=== PATIENT | female | born 1970 | race Caucasian/White ===

== ENCOUNTER → 2020-04-04 10:28 | Outpatient (BNVA) | payer MEDICARE, MEDICAID, SELFPAY | PROVIDERS: PCP Family Medicine; Visit Provider Physician Assistant | DX: K90.49 Malabsorption due to intolerance, not elsewhere classified (principal); K29.70 Gastritis, unspecified, without bleeding; Z98.84 Bariatric surgery status; Z87.19 Personal history of other diseases of the digestive system | CPT/HCPCS: 99212 ==

== ENCOUNTER → 2020-04-05 08:21 | Outpatient (BNVA) | payer MEDICARE, MEDICAID, SELFPAY | PROVIDERS: PCP Family Medicine; Visit Provider Dietitian, Registered | DX: Z76.89 Persons encountering health services in other specified circumstances (principal) ==

== ENCOUNTER → 2020-04-06 08:16 | Outpatient (BNVA) | payer MEDICARE, MEDICAID, SELFPAY | PROVIDERS: PCP Family Medicine; Visit Provider Dietitian, Registered | DX: Z76.89 Persons encountering health services in other specified circumstances (principal) ==

== ENCOUNTER → 2020-04-22 09:03 | Outpatient (BNVA) | payer MEDICARE, MEDICAID, SELFPAY | PROVIDERS: PCP Family Medicine; Referring Provider Family Medicine; Visit Provider Physician Assistant | DX: Z76.89 Persons encountering health services in other specified circumstances (principal) ==

== ENCOUNTER → 2020-07-05 08:14 | Outpatient (BNVA) | payer MEDICARE, MEDICAID, SELFPAY | PROVIDERS: PCP Family Medicine; Visit Provider Dietitian, Registered ==

== ENCOUNTER 2021-03-17 13:39 | Outpatient (REF) | payer MEDICARE, MEDICAID, SELFPAY ==
[2021-03-17 14:50] LABS: MANUAL DIFF FLAG NO
[2021-03-17 14:57] LABS: Basophils Percent Auto 0.3 % (0-2); Eosinophils Absolute Auto 0.2 X10*3/uL (0.0-0.4); Eosinophils Percent Auto 2.2 % (0-4); Hematocrit 40.5 % (37-47); Hemoglobin 13.1 g/dl (12.0-16.0); Imm Gran Abs Auto 0.02 X10*3/uL (0.00-0.03); Imm Gran Pct Auto 0.3 % (0.0-0.4); Lymphocytes Percent Auto 27.3 % (20-40); Mean Corpuscular HGB Conc 32.3 g/dl (31.0-35.0); Mean Corpuscular Hemoglobin 30.2 pg (27.0-33.0); Mean Corpuscular Volume 93.3 fL (80-98); Mean Platelet Volume 11.2 fL (9.4-12.3); Monocytes Absolute Auto 0.4 X10*3/uL (0.1-1.2); Monocytes Percent Auto 4.8 % (2-11); Neutrophils Absolute Auto 4.8 X10*3/uL (2.0-8.3); Neutrophils Percent Auto 65.1 % (45-73); Platelet Count 186 X10*3/uL (160-400); Red Blood Count 4.34 X10*6/uL (4.20-5.50); Red Cell Distribution Width 13.8 % (11.0-16.0); White Blood Count 7.4 X10*3/uL (4.8-10.8)
[2021-03-17 15:18] LABS: Estimated Average Glucose 97 mg/dL
[2021-03-17 15:22] LABS: Alanine Aminotransferase 12 U/L (0-31); Alkaline Phosphatase 91 U/L (39-117); Anion Gap 11 (12-20); Aspartate Amino Transferase 15 U/L (5-31); Bilirubin Total 0.6 mg/dL (0.0-1.0); Blood Urea Nitrogen 11 mg/dL (9-16); C Reactive Protein 0.23 mg/dL (< or = 0.50); Calcium 9.6 mg/dL (8.4-10.2); Carbon Dioxide 31 mmol/L (22-29); Chloride 105 mmol/L (96-108); Cholesterol 174 mg/dL; Estimated Glomerular Filt Rate > 60; Glucose Random 81 mg/dL (60-115); HDL Cholesterol 59 mg/dL; Iron 54 mcg/dL (30-160); LDL Cholesterol Calculated 101 mg/dl; Percent Iron Saturation 16 % (15-50); Sodium 143 mmol/L (135-145); Total Iron Binding Capacity 343 mcg/dL (228-428); Total Protein 6.8 g/dL (6.5-8.0); Triglycerides 70 mg/dL; Unsaturated Iron Binding 289 ug/dL
[2021-03-17 15:44] LABS: Vitamin D 25-OH Total 22.7 ng/mL (>30)
[2021-03-17 15:51] LABS: Folate 9.6 ng/mL (> or = 4.0); Vitamin B12 309 pg/mL (200-900)
[2021-03-17 16:15] LABS: Ferritin 35 ng/mL (10-250)
[2021-03-20 14:31] LABS: Calcium (PTHI) 9.9 mg/dL (8.6-10.4); PTHI 48 pg/mL (14-64)
[2021-03-22 16:06] LABS: Zinc 59 mcg/dL (60-130)
[2021-03-22 18:42] LABS: Vitamin A 41 mcg/dL (38-98)
[2021-03-23 11:22] LABS: Vitamin B1 15 nmol/L (8-30)
== END 2021-03-17 13:40 | disposition home or self-care (01) ==
LOC: HO.LAB 13:39
PROVIDERS: PCP Family Medicine; Visit Provider Physician Assistant Surgical
DX: E66.9 Obesity, unspecified (principal); Z68.33 Body mass index [BMI] 33.0-33.9, adult; Z90.3 Acquired absence of stomach [part of]
CPT/HCPCS: 36415; 80053; 80061; 82306; 82607; 82728; 82746; 83036; 83540; 83970; 84425; 84443; 84590; 84630; 85025; 86140; 99212

== ENCOUNTER → 2021-06-06 08:04 | Outpatient (BNVA) | payer MEDICARE, MEDICAID, SELFPAY | PROVIDERS: PCP Family Medicine; Visit Provider Physician Assistant Surgical | DX: E66.9 Obesity, unspecified (principal); Z90.3 Acquired absence of stomach [part of] ==

== ENCOUNTER → 2022-02-28 12:11 | Outpatient (BNVA) | payer OTHER, SELFPAY | PROVIDERS: PCP Family Medicine; Referring Provider Physician Assistant Surgical; Visit Provider Physician Assistant Surgical | DX: E66.9 Obesity, unspecified (principal); Z90.3 Acquired absence of stomach [part of]; Z98.890 Other specified postprocedural states; Z87.19 Personal history of other diseases of the digestive system | CPT/HCPCS: 99212 ==

== ENCOUNTER 2022-03-16 14:32 | Outpatient (REF) | payer OTHER, SELFPAY ==
[2022-03-16 14:45] LABS: MANUAL DIFF FLAG NO
[2022-03-16 15:16] LABS: Basophils Percent Auto 0.5 % (0-2); Eosinophils Absolute Auto 0.3 X10*3/uL (0.0-0.4); Eosinophils Percent Auto 3.1 % (0-4); Hematocrit 40.9 % (37.0-47.0); Hemoglobin 13.1 g/dl (12.0-16.0); Imm Gran Abs Auto 0.03 X10*3/uL (0.00-0.03); Imm Gran Pct Auto 0.4 % (0.0-0.4); Lymphocytes Absolute Auto 2.8 X10*3/uL (1.2-4.9); Lymphocytes Percent Auto 34.6 % (20-40); Mean Corpuscular Volume 93.6 fL (80.0-98.0); Mean Platelet Volume 11.5 fL (9.4-12.3); Monocytes Absolute Auto 0.4 X10*3/uL (0.1-1.2); Monocytes Percent Auto 5.4 % (2-11); Neutrophils Absolute Auto 4.6 x10*3/uL (2.0-8.3); Platelet Count 203 X10*3/uL (160-400); Red Blood Count 4.37 X10*6/uL (4.20-5.50); Red Cell Distribution Width 14.4 % (11.0-16.0); White Blood Count 8.2 X10*3/uL (4.8-10.8)
[2022-03-16 15:20] LABS: Estimated Average Glucose 100 mg/dL; Hemoglobin A1c % 5.1 %
[2022-03-16 15:37] LABS: Alanine Aminotransferase 10 U/L (0-31); Albumin Level 4.3 g/dL (3.5-5.0); Alkaline Phosphatase 105 U/L (39-117); Anion Gap 14 (12-20); Aspartate Amino Transferase 15 U/L (5-31); Bilirubin Total 0.4 mg/dL (0.0-1.0); Blood Urea Nitrogen 13 mg/dL (9-16); C Reactive Protein 0.11 mg/dL (< or = 0.50); Calcium 9.3 mg/dL (8.4-10.2); Carbon Dioxide 27 mmol/L (22-29); Chloride 105 mmol/L (96-108); Cholesterol 178 mg/dL; Estimated Glomerular Filt Rate > 60; Glucose Random 89 mg/dL (60-115); HDL Cholesterol 75 mg/dL; Iron 91 mcg/dL (30-160); LDL Cholesterol Calculated 89 mg/dl; Percent Iron Saturation 25 % (15-50); Potassium 3.6 mmol/L (3.3-5.1); Sodium 142 mmol/L (135-145); Total Iron Binding Capacity 362 mcg/dL (228-428); Triglycerides 70 mg/dL; Unsaturated Iron Binding 271 ug/dL
[2022-03-16 15:58] LABS: Ferritin 24 ng/mL (10-250); Insulin 25 uU/mL (2-29); TSH reflex Free T4 0.59 uIU/mL (0.32-4.0); Vitamin D 25-OH Total 9.4 ng/mL (>30)
[2022-03-16 16:08] LABS: Folate 6.7 ng/mL (> or = 4.0); Vitamin B12 353 pg/mL (200-900)
[2022-03-20 11:41] LABS: Calcium (PTHI) 9.5 mg/dL (8.6-10.4); PTHI 91 pg/mL (16-77)
[2022-03-21 06:17] LABS: Zinc 75 mcg/dL (60-130)
[2022-03-22 06:17] LABS: Vitamin B1 11 nmol/L (8-30)
[2022-03-22 16:55] LABS: Vitamin A 42 mcg/dL (38-98)
== END 2022-03-16 14:33 | disposition home or self-care (01) ==
LOC: HO.LAB 14:32
PROVIDERS: Visit Provider Physician Assistant Surgical
DX: E66.9 Obesity, unspecified (principal); Z87.19 Personal history of other diseases of the digestive system; Z90.3 Acquired absence of stomach [part of]; Z98.890 Other specified postprocedural states
CPT/HCPCS: 36415; 80053; 80061; 82306; 82607; 82728; 82746; 83036; 83525; 83540; 83970; 84425; 84443; 84590; 84630; 85025; 86140

== ENCOUNTER → 2022-09-11 13:31 | Outpatient (BNVA) | payer OTHER, SELFPAY | PROVIDERS: PCP Family Medicine; Visit Provider Physician Assistant Surgical | DX: E66.01 Morbid (severe) obesity due to excess calories (principal); K90.49 Malabsorption due to intolerance, not elsewhere classified; Z68.33 Body mass index [BMI] 33.0-33.9, adult; Z90.49 Acquired absence of other specified parts of digestive tract; Z90.3 Acquired absence of stomach [part of]; Z98.890 Other specified postprocedural states | CPT/HCPCS: 99212 ==

== ENCOUNTER 2023-06-11 13:35 | Outpatient (AMB) | payer OTHER, SELFPAY ==
--- NOTE | 2023-06-11 13:03 | A.OFFVIS_ITS ---
Intake VS Expanded 06/11/23 13:38 Height 5 ft 1.5 in Weight 180 lb BMI 33.5 Intake Visit Reasons: (telephone) PO LSG 12/02/19 Allergies bee pollen [BEE STINGS] Allergy (Severe, Verified 09/11/22 13:34) ANAPHYLAXIS Bees Stings Allergy (Unknown, Uncoded 03/17/21 13:48) swelling Dust Allergy (Unknown, Uncoded 03/17/21 13:48) itching Medication List - Last Reconciled 06/11/23 by TERRY Pacheco acetaminophen 325 mg PO QID PRN albuterol sulfate 90 mcg/actuation inhalation cholecalciferol (vitamin D3) 1,250 mcg PO QWEEK diclofenac sodium 1% topical epinephrine 1 IM ONCE furosemide (Lasix) 60 mg PO QAM ipratropium-albuterol 0.5 mg-3 mg(2.5 mg base)/3 mL mL inhalation QID PRN loratadine 10 mg PO DAILY [MULTIVITAMIN PO] oxycodone 5 mg PO Q6H PRN varenicline (Chantix) 1 mg PO BID HPI HPI Comments History of Present Illness Details This?is a?53?yo female who is s/p LSG 12/02/2019. Presents for 3.5 year post op visit. Weight at last visit on 09/11/2022 was 181.2 pounds with a BMI of 33.7, weight today is 180 pounds, representing a 1.2 pound weight loss with a BMI today of 33.5.? No complaints of nausea, emesis, abdominal pain or reflux, or constipation. Was able to get her own apartment. BP today 117/86, measured at home. Was recently on prednisone for swelling . Present meal plan includes: breakfast 11am- 2 eggs +/- veg lunch 2 or 3pm- 3oz protein/3oz veg dinner 6pm- 3oz protein/3oz veg snack 9pm- Yakut yogurt +/- berries this was given at last visit but pt has not been doing Exercise routine includes: walks dog, has a stepper and exercise ball, resistance bands at home had broken her foot, planning to go to PT [facility] Medical History Anxiety Asthma Bipolar disorder COPD (chronic obstructive pulmonary disease) Depression Gastritis Hx of varicose veins IBS (irritable bowel syndrome) Malabsorption due to intolerance, not elsewhere classified Morbid obesity due to excess calories Surgical History History of arthroplasty of finger of left hand History of axillary surgery History of partial hysterectomy History of repair of hiatal hernia History of sleeve gastrectomy Hx laparoscopic cholecystectomy Hx of section Hx of eye surgery Hx of facial fracture repair Family History Mother Cervical cancer Asthma Father No problems noted. Brother No problems noted. Sister Breast cancer Brother No problems noted. Son No problems noted. Son No problems noted. Son No problems noted. Daughter No problems noted. Social History (Updated 09/11/22 @ 13:36 by DORCAS Vasquez) Alcohol intake: current Alcohol intake frequency: a few times a month Patient Tobacco Use Status: Current everyday Tobacco user Cigarettes Per Day: 10 Assessment & Plan Assessment & Plan (1) Obesity (BMI 30.0-34.9): Code(s): E66.9 - Obesity, unspecified (2) History of sleeve gastrectomy: Comment: DOS 12/02/19, Dr. Van Code(s): Z90.3 - Acquired absence of stomach [part of] Plan Reviewed portion sizes, no more than 8oz total volume per meal. Discussed beverage choices, water and zero calorie noncarbonated beverages. Gave pt meal times. Exercise- start stair stepper 20-30 min 3-4x/week, and weight training 2- 3x/week for 20-30 min. Work up to 2000 calories burned per week. Labs ordered. RTC 3 months. Patient is obese and is not considered stable at this time. I spent a total of 30 minutes reviewing/updating records, examining the patient and counseling the patient on weight management as detailed above. Orders: Orders Hemoglobin A1c Today K90.49 - Malabsorption due to intolerance, not elsewhere classified, Z90.3 - Acquired absence of stomach [part of] Complete Blood Count Auto Diff Today K90.49 - Malabsorption due to intolerance, not elsewhere classified, Z90.3 - Acquired absence of stomach [part of] Vitamin B12 and Folate Today K90.49 - Malabsorption due to intolerance, not elsewhere classified, Z90.3 - Acquired absence of stomach [part of] C Reactive Protein Today K90.49 - Malabsorption due to intolerance, not elsewhere classified, Z90.3 - Acquired absence of stomach [part of] Vitamin B1 Today K90.49 - Malabsorption due to intolerance, not elsewhere classified, Z90.3 - Acquired absence of stomach [part of] Vitamin A Today K90.49 - Malabsorption due to intolerance, not elsewhere class ified, Z90.3 - Acquired absence of stomach [part of] Insulin Today K90.49 - Malabsorption due to intolerance, not elsewhere classified, Z90.3 - Acquired absence of stomach [part of] Lipid Panel Today K90.49 - Malabsorption due to intolerance, not elsewhere classified, Z90.3 - Acquired absence of stomach [part of] IRON PROFILE Today K90.49 - Malabsorption due to intolerance, not elsewhere classified, Z90.3 - Acquired absence of stomach [part of] Comprehensive Met. Panel Today K90.49 - Malabsorption due to intolerance, not elsewhere classified, Z90.3 - Acquired absence of stomach [part of] Zinc Today K90.49 - Malabsorption due to intolerance, not elsewhere classified, Z90.3 - Acquired absence of stomach [part of] TSH reflex Free T4 Today K90.49 - Malabsorption due to intolerance, not elsewhere classified, Z90.3 - Acquired absence of stomach [part of] Ferritin Today K90.49 - Malabsorption due to intolerance, not elsewhere classified, Z90.3 - Acquired absence of stomach [part of] Vitamin D 25-OH Total Today K90.49 - Malabsorption due to intolerance, not elsewhere classified, Z90.3 - Acquired absence of stomach [part of] Telehealth Telehealth Location of provider rendering services: practice address Location of patient: address on file Patient Identification confirmed using: Name, : Yes Telehealth method: voice only Patient verbally consented to treatment: Yes Patient verbally consented to billing insurance company: Yes Patient informed of any privacy concerns related to visit: Yes Minutes spent on Phone/Video with Pt.: 21 Coding Level of Care Code Tele Est Pt Level 4 (69896) Diagnoses Obesity (BMI 30.0-34.9) E66.9 History of sleeve gastrectomy Z90.3
[2023-06-11 13:38] VITALS: BMI 33.5
== END 2023-06-11 13:55 | disposition home or self-care (01) ==
LOC: HO.HBS 13:35
PROVIDERS: PCP Family Medicine; Visit Provider Physician Assistant Surgical
DX: E66.9 Obesity, unspecified (principal); Z68.33 Body mass index [BMI] 33.0-33.9, adult; Z90.3 Acquired absence of stomach [part of]; Z98.84 Bariatric surgery status
CPT/HCPCS: 99443

== ENCOUNTER → 2023-06-11 13:35 | Outpatient (BNVA) | payer OTHER, SELFPAY | PROVIDERS: PCP Family Medicine; Visit Provider Physician Assistant Surgical ==

== ENCOUNTER 2024-11-17 12:23 | Outpatient (REF) | payer OTHER, SELFPAY ==
[2024-11-17 13:36] LABS: MANUAL DIFF FLAG NO
[2024-11-17 14:01] LABS: Hematocrit 36.5 % (37.0-47.0); Hemoglobin 11.5 g/dl (12.0-16.0); Imm Gran Abs Auto 0.02 X10*3/uL (0.00-0.03); Imm Gran Pct Auto 0.3 % (0.0-0.4); Lymphocytes Absolute Auto 1.9 X10*3/uL (1.2-4.9); Mean Corpuscular HGB Conc 31.5 g/dl (31.0-35.0); Mean Corpuscular Hemoglobin 26.9 pg (27.0-33.0); Mean Corpuscular Volume 85.5 fL (80.0-98.0); NRBC Abs Auto 0.000 X10*3/uL (0.0-0.012); NRBC Pct Auto 0.0 /100WBC (0.0-0.2); Platelet Count 230 X10*3/uL (160-400); Red Blood Count 4.27 X10*6/uL (4.20-5.50); White Blood Count 6.9 X10*3/uL (4.8-10.8)
[2024-11-17 14:13] LABS: Hemoglobin A1C 106.8201 umol/L; Total Hemoglobin (HGBA1C) 3107.1207 umol/L
[2024-11-17 14:30] LABS: Alanine Aminotransferase 13 U/L (0-31); Albumin Level 3.9 g/dL (3.5-5.0); Alkaline Phosphatase 93 U/L (39-117); Anion Gap 11 (12-20); Aspartate Amino Transferase 22 U/L (5-31); Blood Urea Nitrogen 11 mg/dL (9-16); Calcium 8.9 mg/dL (8.4-10.2); Carbon Dioxide 28 mmol/L (22-29); Chloride 108 mmol/L (96-108); Cholesterol 176 mg/dL (<200); Estimated Glomerular Filt Rate > 60; HDL Cholesterol 59 mg/dL (>40); Iron 26 mcg/dL (30-160); Percent Iron Saturation 8 % (15-50); Potassium 3.3 mmol/L (3.3-5.1); Sodium 144 mmol/L (135-145); Total Iron Binding Capacity 321 mcg/dL (228-428); Total Protein 6.3 g/dL (6.5-8.0); Triglycerides 102 mg/dL (<150); Unsaturated Iron Binding 295 ug/dL
[2024-11-17 14:50] LABS: Ferritin 9 ng/mL (10-250)
[2024-11-17 14:56] LABS: Folate 5.6 ng/mL (> or = 4.0); Vitamin B12 386 pg/mL (200-900)
== END 2024-11-17 12:24 | disposition home or self-care (01) ==
LOC: HO.LAB 12:23
PROVIDERS: PCP Family Medicine; Visit Provider Physician Assistant Surgical
DX: Z90.3 Acquired absence of stomach [part of] (principal)
CPT/HCPCS: 36415; 80053; 80061; 82306; 82607; 82728; 82746; 83036; 83525; 83540; 84425; 84443; 84590; 84630; 85025; 86140; 99212

== ENCOUNTER 2024-11-17 12:23 | Outpatient (AMB) | payer OTHER, SELFPAY ==
--- OUTSIDE RECORDS SUMMARY | 2024-08-17 04:15 | XMS_ITS | Continuity of Care Document ---
Author Organization [facility] Address [address] [place] [address] Phone Care Team Providers [employer] Name Role Phone Rex GARG, RVT, RPDIONNE, Kofi Unavailable U navailable Allergies, Adverse Reactions, Alerts Substance Reaction Status Criticality No Known Allergies Active No Inform ation Procedures Procedure Date Office/Outpt E&M Established 15 Mins- CT & [place] Duplex Scan-extrem Veins; Comp- CT & [place] Duplex Scan-extrem Veins; Uni/ CT & [place] F Inj Scleros Solut; Mx Veins 1- CT & [place] F Ultrason Guidan Needle Bx-rad- CT & [place] F Office/Outpt E&M Established 15 Mins- CT & [place] Surgical Stockings CVR Reveal Knee High - Duplex Scan-extrem Veins; Comp- CT & [place] Duplex Scan-extrem Veins; Uni/ CT & [place] A Endovenous Laser, 1st Vein- CT & [place] Duplex Scan-extrem Veins; Uni/ CT & [place] A Varithena, Single Truncal Vein - CT & [place] Varithena, Single Truncal Vein - CT & [place] Offic/outpt E&m Estab 5 Min Trial- Telem edicine CT & [place] Offic Cons New/estab Mod-hi 60- CT & [place] Duplex Scan-extrem Veins; Comp- CT & [place] Advance Directives Directive Yes / No Effective Date File Name No Information Encounters Encounter Description Practice Location Reason(s) For Visit Diagnoses Date Provider Providers Copied on Encounter Office/Outpt E&M Established 15 Mins- [facility] & [facility], [address] [place] [address] Dr Armas [address]Su[place]anna webb [place], [id number], [place] tel:[phone] [facility] Venous insufficiency (chronic) (peripheral)C ramp and spasmRestless legs syndromeLocal ized edema 5 Rex GARG RVT, GRACIELA Kirby. [address] [place] [address], [facility] [place], [id number], [place]. tel:[phone] Referring Provider: Anabelle Santiago MD, [address] [place] [address], [address]. tel:[phone] [facility], [address] [place] [address] Dr Armas [address]SuDeanna webb [place], [id number], [place] tel:[phone] [facility] Chronic venous hypertension (idiopathic) with other complications of bilateral lower extremity 5 Rex GARG RVT, GRACIELA Kirby. [address] [place] [address], [facility] [place], [id number], [place]. tel:[phone] Referring Provider: Anabelle Santiago MD, [address] [place], [address]. tel:[phone] [facility], [address] [place] [address] Dr Armas [address]issa [address]anna [place], [id number], [place] tel:[phone] [facility] Encounter for follow-up examination after completed treatment for conditions other than malignant neoplasmPain in right leg 5 Rex GARG RVT, GRACIELA Kirby. [address] [place] [address], [facility] [place], [id number], [place]. tel:[phone] Referring Provider: Anabelle Santiago MD, [address] [place] [address], [address]. tel:[phone] [facility], [address] [place] [address] Dr Armas [address]Suite Deanna Anne [place], [id number], [place] tel:[phone] [facility] [place] [facility] [place] Varicose veins of right lower extremity with other complications 5 Rex GARG RVT, GRACIELA Kirby. [address] [place] [address], [place], [place], [id number], [place]. tel:[phone] Referring Provider: Anabelle Santiago MD, [address] [place] [address], [address]. tel:[phone] Office/Outpt E&M Established 15 [facility]- [place] & [place] [facility], [address] [place] [address] Dr Armas 1000SuDeanna webb [place], [id number], [place] tel:[phone] [facility] [place] Chronic venous hypertension (idiopathic) without complications of bilateral lower extremity 5 Rex GARG RVT, GRACIELA Kirby. [address] [place] [address], [place], [place], [id number], [place]. tel:[phone] Referring Provider: Anabelle Santiago MD, [address] [place] [address], [address]. tel:[phone] [facility], [address] [place] [address] Dr Armas 1000SuDeanna webb [place], [id number], [place] tel:[phone] [facility] [place] Chronic venous hypertension (idiopathic) with other complications of bilateral lower extremity 5 Rex GARG RVT, GRACIELA Kirby. [address] [place] [address], [facility] [place], [id number], [place]. tel:[phone] Referring Provider: Anabelle Santiago MD, [address] [place] [address], [address]. tel:[phone] [facility], [address] [place] [address] Dr Armas [address]Suite Deanna Anne [place], [id number], [place] tel:[phone] [facility] [place] Encounter for follow-up examination after completed treatment for conditions other than malignant nePain in right leg 4 Rex GARG RVT, GRACIELA Kirby. [address], [address], [place], [place], [id number], [place]. tel:[phone] Referring Provider: Anabelle Santiago MD, [address] [place] [address], [address]. tel:[phone] [facility], [address] [place] [address] [facility] [address]Deanna [place], [id number], [place] tel:[phone] [facility] [place] Varicose veins of right lower extremity with other complications 4 Rex GARG RVT, GRACIELA Kirby. [address] [place] [address], [place], [place], [id number], [place]. tel:[phone] Referring Provider: Anabelle Santiago MD, [address] [place] [address], [address]. tel:[phone] [facility], [address] [place] [address] [facility] [address] Deanna Anne [place], [id number], [place] tel:[phone] [facility] [place] Encounter for follow-up examination after completed treatment for conditions other than malignant neVaricose veins of left lower extremity with pain 4 Rex GARG RVT, GRACIELA Kirby. [address] [place] [address], [address], [facility] [place], [id number], [place]. tel:[phone] Referring Provider: Anabelle Santiago MD, [address] [place] [address], [address]. tel:[phone] [facility], [address] [place] [address] Dr Armas [address] 1000Deanna [place], [id number], [place] tel:[phone] [facility] [place] Varicose veins of left lower extremity with other complications 4 Rex GARG RVT, GRACIELA Kirby. [address] [place] [address], [facility] [place], [id number], [place]. tel:[phone] Referring Provider: Anabelle Santiago MD, [address] [place], [address]. tel:[phone] [facility], [address] [place] [address] Dr Armas 1000[facility] [place] Anne [place], [id number], [place] tel:[phone] [facility] [place] Varicose veins of left lower extremity with other complications 4 Rex GARG, GURMEET, GRACIELA Kirby. [address] [address], [facility] [place] [id number], [place]. tel:[phone] Referring Provider: Anabelle Santiago MD, [address] [place] [address], [address]. tel:[phone] [facility], [address] [place] [address] [place], [place] [address]De[place], [id number], [place] tel:[phone] [facility] [place] No Information 4 Rex GARG, GURMEET, GRACIELA Kirby. [address] [place] [address], [facility] [place], [id number], [place]. tel:[phone] Offic/outpt E&m Estab 5 Min Trial- Telemedicine [place] & [place] [facility], [address] [place] [address] Dr [address] [place], [place] [address]De[place], [id number], [place] tel:[phone] [facility] [place] Cramp and spasmLocalize d edemaRestless legs syndromeVenou s insufficiency (chronic) (peripheral) 4 Ruddy Hoyos. [address] [address], [facility] [place] [place], [id number], [place]. tel:[phone] Referring Provider: Anabelle Santiago MD, [address] [place] [address], [address]. tel:[phone] Offic Cons New/estab Mod-hi 60- [place] & [place] [facility], [address] [place] [address] Dr Armas [address], [place], [id number], [place] tel:[phone] [facility] - [facility] Localized edemaChronic venous hypertension (idiopathic) without complications of bilateral lower extremityRest less legs syndromePain in left legCramp and spasm 4 Rex GARG RVT, GRACIELA Kirby. [address] [address], [facility] [place], [id number], [place]. tel:[phone] Referring Provider: Anabelle Santiago MD, [address] [place], [address]. tel:[phone] [facility], [address] [place] [address] Dr Armas [address], [place], [id number], [place] tel:[phone] [facility] Chronic venous hypertension (idiopathic) with other complications of bilateral lower extremity 4 Rex GARG RVT, GRACIELA Kirby. [facility] [address], [facility], [id number], [place]. tel:[phone] Referring Provider: Anabelle Santiago MD, [address] [place], [address]. tel:[phone] Family History Family Member Type Diagnosis Age At Onset No Information Payers Payer name Insurance type Covered democrat ID Authormarka dawit(s) [facility] CI [id number] Social History Type Description Quantity Date Captured Comments Alcohol Use Details Unknown Caffeine Use Details Unknown Tobacco Use Status Smoking Status Smoker, current stat us unknown Non-Smoking Tobacco Use Details : No Details Available : No Details Available Sex Female Vital Signs Date / Time: Height Weight BMI Pulse Rate Blood Pressure Temperature Respiratory Rate Body Surface Area Head Circumference Head Circ. Percentile Wt./Rock. Percentile BMI percentile Pulse Ox Inhaled Ox 77.110 kg (170.00 lbs) 32.1 4 kg/m eter (2) 122/86 mm[Hg] Chief Complaint And Reason For Visit No Information Reason For Referral Reason For Referral No Information Plan Of Treatment Date Type Action Status Goal Tobacco cessation counseling completed Goal Diet education completed Goal Tobacco cessation counseling completed Goal Diet education completed Goal Tobacco cessation counseling completed Goal Tobacco cessation counseling completed Goal Diet education completed Referral Ordered: Weight management: Referral to physician timeframe: 3 Months (related to Body mass index (BMI) 32.0-32.9, adult) ordered Referral Ordered: Weight management: Referral to physician timeframe: 3 Months (related to Body mass index (BMI) 32.0-32.9, adult) ordered Referral Ordered: Weight management: Referral to physician timeframe: 3 Months (related to Body mass index (BMI) 32.0-32.9, adult) ordered History Of Present Illness Encounter Date Complaint History Of Prese nt Illness No Information Functional Status Date Functional Assessmen t No Information Instructions Date Instruction Additional Infor jared Patient education booklet given Related to Venous insufficiency (chronic) (peripheral) Compression stocking usage as conservative measure Related to Venous insufficiency (chronic) (peripheral) Lifestyle education Related to B fara mass index (BMI) 32.0-32.9, adult Giving Encouragement to exercise Related to Body mass index (BMI) 32.0-32.9, adult Diet education Related to Body mass index (BMI) 32.0-32.9, adult Diet education Related to Body mass index (BMI) 32.0-32.9, adult Compression stocking usage as conservative measure Related to Chronic venous hypertension (idiopathic) without complications of bilateral lower extremity Pre and post instruc tions reviewed and provided Related to Chronic venous hypertension (idiopathic) without complications of bilateral lower extremity Lifestyle education Related to B fara mass index (BMI) 32.0-32.9, adult Giving Encouragement to exercise Related to Body mass index (BMI) 32.0-32.9, adult Pre and post instruc tions reviewed and provided Related to Localized edema Compression stocking usage as conservative measure Related to Localized edema Lifestyle education Related to B fara mass index (BMI) 32.0-32.9, adult Giving Encouragement to exercise Related to Body mass index (BMI) 32.0-32.9, adult Diet education Related to Body mass index (BMI) 32.0-32.9, adult Pre and post instruc tions reviewed and provided Related to Chronic venous hypertension (idiopathic) without complications of bilateral lower extremity Patient education booklet given Related to Chronic venous hypertension (idiopathic) without complications of bilateral lower extremity Assessments Type Assessment Date No Information Patient Care Teams Name Effective Dates (start - stop) Status Members No Information
[2024-11-17 12:33] VITALS: BP 144/75; PULSE 77; TEMP 36.5; O2SAT 97; BMI 39.9
--- NOTE | 2024-11-17 12:33 | MHC.OFFVISWM ---
VS Expanded 11/17/24 12:33 BP 144/75 H Blood Pressure Location Rt brachial Blood Pressure Position Sitting Pulse 77 Pulse Source Pulse Oximeter Temp 97.7 F Temperature Source Temporal Artery Scan Pulse Oximetry 97 Oxygen Delivery Method Room Air Height 5 ft 1.5 in Weight 214 lb 12.8 oz BMI 39.9 Body Fat % 38.6 Body Fat Mass 97.8 Fat Free Mass 116.8 Visceral Fat Rating 14 Body Water % 38.6 Body Water Mass 82.8 Muscle Mass/Score 110.8 Basal Metabolic Rate/Score 1,639 Intake Visit Reasons: (OV) PO LSG 12/02/19 Allergies bee pollen (BEE STINGS) Allergy (Severe, Verified 09/11/22 13:34) ANAPHYLAXIS Bees Stings Allergy (Unknown, Uncoded 03/17/21 13:48) swelling Dust Allergy (Unknown, Uncoded 03/17/21 13:48) itching Medication List - Last Reconciled 11/17/24 by TERRY Pacheco acetaminophen 325 mg PO QID PRN albuterol sulfate 90 mcg/actuation inhalation cholecalciferol (vitamin D3) 1,250 mcg PO QWEEK diclofenac sodium 1% topical epinephrine 1 IM ONCE furosemide (Lasix) 60 mg PO QAM ipratropium-albuterol 0.5 mg-3 mg(2.5 mg base)/3 mL mL inhalation QID PRN loratadine 10 mg PO DAILY [MULTIVITAMIN PO] oxycodone 5 mg PO Q6H PRN varenicline tartrate (Chantix) 1 mg PO BID HPI Comments Details: 54yoF s/p LSG 12/02/19. Weight gain of 34.8lbs since last OV in May 2023. Pt reports I fell off Current meal plan: not following anything structured Not as active as I used to be but likes to walk outside. [facility] Medical History Anxiety Asthma Bipolar disorder COPD (chronic obstructive pulmonary disease) Depression Gastritis Hx of varicose veins IBS (irritable bowel syndrome) Malabsorption due to intolerance, not elsewhere classified Morbid obesity due to excess calories Surgical History History of arthroplasty of finger of left hand History of axillary surgery History of partial hysterectomy History of repair of hiatal hernia History of sleeve gastrectomy Hx laparoscopic cholecystectomy Hx of section Hx of eye surgery Hx of facial fracture repair Family History Mother Cervical cancer Asthma Father No problems noted. Brother No problems noted. Sister Breast cancer Brother No problems noted. Son No problems noted. Son No problems noted. Son No problems noted. Daughter No problems noted. Social History (Updated 09/11/22 @ 13:36 by DORCAS Vasquez) Alcohol intake: current Alcohol intake frequency: a few times a month Patient Tobacco Use Status: Current everyday Tobacco user Cigarettes Per Day: 10 Physical Exam Vital Signs: Last Vital Signs Temp 97.7 F 11/17/24 12:33 Pulse 77 11/17/24 12:33 BP 144/75 H 11/17/24 12:33 Pulse Ox 97 11/17/24 12:33 Oxygen Delivery Method Room Air 11/17/24 12:33 BMI result Body Mass Index 39.9 Assessment & Plan Assessment & Plan (1) History of sleeve gastrectomy: Comment: DOS 12/02/19, Dr. Van Code(s): Z90.3 - Acquired absence of stomach [part of] Category: Surgical (2) Obesity (BMI 30.0-34.9): Code(s): E66.9 - Obesity, unspecified Category: Medical Plan Pt is interested in starting GLP1. Reviewed contraindications, discussed dosing. Discussed need for adequate protein intake while on GLP1s as well as frequent communication with our office. Pt will check in with me weekly and is aware that subsequent Rx will be dependent on frequent communication. Also gave pt [employer] rodney and encouraged her to create a meal plan. She prefers a more food based plan. Gave protein water handout as well and encouraged her to consider. Labs ordered. RTC 3mo. Orders: Orders Vitamin D 25-OH Total Today Z90.3 - Acquired absence of stomach [part of] C Reactive Protein Today Z90.3 - Acquired absence of stomach [part of] Vitamin A Today Z90.3 - Acquired absence of stomach [part of] Complete Blood Count Auto Diff Today Z90.3 - Acquired absence of stomach [part of] IRON PROFILE Today Z90.3 - Acquired absence of stomach [part of] Ferritin Today Z90.3 - Acquired absence of stomach [part of] TSH reflex Free T4 Today Z90.3 - Acquired absence of stomach [part of] Vitamin B1 Today Z90.3 - Acquired absence of stomach [part of] Zinc Today Z90.3 - Acquired absence of stomach [part of] Vitamin B12 and Folate Today Z90.3 - Acquired absence of stomach [part of] Comprehensive Met. Panel Today Z90.3 - Acquired absence of stomach [part of] Lipid Panel Today Z90.3 - Acquired absence of stomach [part of] Hemoglobin A1c Today Z90.3 - Acquired absence of stomach [part of] Insulin Today Z90.3 - Acquired absence of stomach [part of] Medications: New Zepbound (tirzepatide (weight loss)) for 4 weeks 2.5 mg (0.5 mL) subcut QWEEK 2 mL 0RF NS
== END 2024-11-17 13:08 | disposition home or self-care (01) ==
LOC: HO.HBS 12:23
PROVIDERS: PCP Family Medicine; Visit Provider Physician Assistant Surgical
DX: E66.9 Obesity, unspecified (principal); Z68.39 Body mass index [BMI] 39.0-39.9, adult; Z90.3 Acquired absence of stomach [part of]; Z98.84 Bariatric surgery status
CPT/HCPCS: 99214; G2211

== ENCOUNTER 2025-02-17 11:41 | Outpatient (AMB) | payer OTHER, SELFPAY ==
--- NOTE | 2025-02-17 11:40 | MHC.OFFVISWM ---
VS Expanded 02/17/25 11:45 Height 5 ft 1.5 in Weight 220 lb BMI 40.9 Intake Visit Reasons: (TV) PO LSG 12/02/19 Allergies bee pollen (BEE STINGS) Allergy (Severe, Verified 09/11/22 13:34) ANAPHYLAXIS Bees Stings Allergy (Unknown, Uncoded 03/17/21 13:48) swelling Dust Allergy (Unknown, Uncoded 03/17/21 13:48) itching Medication List - Last Reconciled 02/17/25 by TERRY Pacheco acetaminophen 325 mg PO QID PRN albuterol sulfate 90 mcg/actuation inhalation cholecalciferol (vitamin D3) 1,250 mcg PO QWEEK diclofenac sodium 1% topical epinephrine 1 IM ONCE furosemide (Lasix) 60 mg PO QAM ipratropium-albuterol 0.5 mg-3 mg(2.5 mg base)/3 mL mL inhalation QID PRN loratadine 10 mg PO DAILY [MULTIVITAMIN PO] oxycodone 5 mg PO Q6H PRN varenicline tartrate (Chantix) 1 mg PO BID vitamin A palmitate 10,000 units PO DAILY HPI Comments Details: This?is a?54?yo F who is s/p LSG 12/02/2019. Presents for 5y 3mo post op visit. Weight at last visit on 11/17/2024 was 214.8 pounds; Weight today is 220 pounds, representing a 5.2 pound weight gain with a BMI today of 40.9.? No complaints of nausea, emesis, abdominal pain or reflux, or constipation. Was denied for Zepbound at last visit. Present meal plan includes: at last visit recommended [employer] but pt did not use has not been following a good meal plan Exercise routine includes: likes to walk outside [facility] Medical History Anxiety Asthma Bipolar disorder COPD (chronic obstructive pulmonary disease) Depression Gastritis Hx of varicose veins IBS (irritable bowel syndrome) Malabsorption due to intolerance, not elsewhere classified Morbid obesity due to excess calories Surgical History History of arthroplasty of finger of left hand History of axillary surgery History of partial hysterectomy History of repair of hiatal hernia History of sleeve gastrectomy Hx laparoscopic cholecystectomy Hx of section Hx of eye surgery Hx of facial fracture repair Family History Mother Cervical cancer Asthma Father No problems noted. Brother No problems noted. Sister Breast cancer Brother No problems noted. Son No problems noted. Son No problems noted. Son No problems noted. Daughter No problems noted. Social History (Updated 09/11/22 @ 13:36 by DORCAS Vasquez) Alcohol intake: current Alcohol intake frequency: a few times a month Patient Tobacco Use Status: Current everyday Tobacco user Cigarettes Per Day: 10 Telehealth Telehealth Telehealth Platform: Telephone Location of provider rendering services: practice address Location of patient: address on file Patient Identification confirmed using: Name, : Yes Telehealth method: voice only Patient verbally consented to treatment: Yes Patient verbally consented to billing insurance company: Yes Patient informed of any privacy concerns related to visit: Yes Minutes spent on Phone/Video with Pt.: 16 Assessment & Plan Assessment & Plan (1) History of sleeve gastrectomy: Comment: GEMMA 12/02/19, Dr. Van Code(s): Z90.3 - Acquired absence of stomach [part of] Category: Medical (2) Morbid obesity due to excess calories: Code(s): E66.01 - Morbid (severe) obesity due to excess calories Category: Medical Plan Pt is interested in phentermine. Will send rx. Strongly encouraged pt to follow a meal plan from [employer] and discussed the importance of proper nutrition in weight loss. She will text me daily BP measurements and knows not to take med if > 140/90. If no significant weight loss from phentermine she is still interested in GLP1s. RTC in May. Medications: Discontinued Zepbound (tirzepatide (weight loss)) for 4 weeks Discontinued Reason: Doctor's Order 2.5 mg (0.5 mL) subcut QWEEK 2 mL 0RF NS
[2025-02-17 11:45] VITALS: BMI 40.9
--- OUTSIDE RECORDS SUMMARY | 2025-02-17 13:16 | XMS_ITS | Encounter Summary ---
Author Organization [facility] Address [address] [place] [address] Phone Care Team Providers Care Film Casting Operator Name Role Phone Anabelle Santiago MD Unavailable [phone] Toño Lopez MD Unavailable Mita Faustin MD Unavailable [phone] Tommy Enriquez MD, MS Unavailable [phone] Carmelo Middleton MD Unavailable + [phone] Austin Pyle MD Unavailable [phone] Jeronimo Wood CNP Unavailable [phone] Anabelle Santiago MD Primary Care Provider [phone] Anabelle Santiago MD Primary Care Provider [phone] Leonel Rivera MD Unavailable [phone] Encounter Details Date Type Department Care Team (Latest Contact Info) Description 09/16/2018 Transcribe Orders Virtual Department [address] [place] [address] Luh [place], AGRICULTURAL TECHNICIAN [address] [place], [place] [id number] Abdominal pain, epigastric (Primary Dx); Abdominal pain, left upper quadrant; Bloating; Nausea Social History Tobacco Use Types Packs/Day Years Used Date Smoking Tobacco: Former Cigarettes Smokeless Tobacco: Never Alcohol Use Standard Drinks/Week Comments Yes 0 (1 standard drink = 0.6 oz pur e alcohol) minimal Comments No Sex and Gender Information Value Date Recorded Sex Assigned at Female 08/18/2017 9:48 PM EDT Legal Sex Female 9:34 PM EDT Gender Identity Female 08/18/2017 9:48 PM EDT Sexual Orientation Straight 05/16/2018 1: 02 PM EST documented as of this encounter Plan of Treatment Not on file documented as of this encounter Visit Diagnoses Diagnosis Abdominal pain, epigastric- Primary Abdominal pain, left upper quadrant Bloating Flatulence, eructation, and gas pain Nausea Nausea alone documented in this encounter Additional Health Concerns Infection Onset Date Last Indicated Resolved Time CoV-Risk 05/24/2020 05/25/2020 06/03/2020 1:24 AM EST CoV-Risk 07/06/2020 07/06/2020 07/16/2020 1:23 AM EST documented as of this encounter Care Teams Film Casting Operator Relationship Specialty Start Date End Date Anabelle Santiago MD PCP - General Family Medicine 04/03/17 10/27/23 Anabelle Santiago MD [address] [place] [id number] PCP - General Family Medicine 10/28/23 Anabelle Santiago MD Historical LMR Provider 03/09/17 Toño Lopez MD [address] [place] [address], [address] [address] [email or web address] Historical LMR Provider 03/09/17 05/27/21 Mita Faustin MD [address] [place] [address], 2nd [place] [address] [facility] Historical LMR Provider 03/09/17 05/27/21 Tommy Enriquez MD, MS [address] [place] [address] [email or web address] Historical LMR Provider 03/09/17 05/27/21 Carmelo Middleton MD [address] [place] [address] [email or web address] Historical LMR Provider 03/09/17 05/27/21 Austin Pyle MD 22 [facility], [address] [address] [email or web address] Historical LMR Provider 03/09/17 05/27/21 Jeronimo Wood AGRICULTURAL TECHNICIAN [address] [address] [email or web address] Historical LMR Provider 03/09/17 05/27/21 Leonel Rivera MD [address] [place] [address] [email or web address] 09/29/24 documented as of this encounter Additional Source Comments The information contained in this document represents components of the legal health record. It is not the complete legal health record.[facility]
--- OUTSIDE RECORDS SUMMARY | 2025-02-17 13:16 | XMS_ITS | Encounter Summary ---
Author Organization [facility] Address [address] [place] [address] Phone Care Team Providers Care Sheet Metal Fabricator Name Role Phone Anabelle Santiago MD Unavailable [phone] Toño Lopez MD Unavailable Mita Faustin MD Unavailable [phone] Tommy Enriquez MD, MS Unavailable [phone] Carmelo Middleton MD Unavailable + [phone] Austin Pyle MD Unavailable [phone] Jeronimo Wood CNP Unavailable [phone] Anabelle Santiago MD Primary Care Provider [phone] Anabelle Santiago MD Primary Care Provider [phone] Leonel Rivera MD Unavailable [phone] Encounter Details Date Type Department Care Team (Late st Contact Info) Description 05/24/2020 Transcribe Orders Virtual Department [address] [place] [address] Donna Cason MD [address] [place], [place] [id number] [email or web address] Fever, unspecified fever cause (Primary Dx); Cough Social History Tobacco Use Types Packs/Day Years Used Date Smoking Tobacco: Former Cigarettes Smokeless Tobacco: Never Comments:quit May 2019 Alcohol Use Standard Drinks/Week Comments Yes 0 [...] as of this encounter Visit Diagnoses Diagnosis Fever, unspecified fever cause- Primary Cough documented in this encounter Additional Health Concerns Infection Onset Date Last Indicated Resolved Time CoV-Risk 05/24/2020 05/25/2020 06/03/2020 1:24 AM EST CoV-Risk 07/06/2020 07/06/2020 07/16/2020 1:23 AM EST documented as of this encounter Care Teams Sheet Metal Fabricator Relationship Specialty Start Date End Date Anabelle Santiago MD PCP - General Family Medicine 04/03/17 10/27/23 Anabelle Santiago MD [address] [place] [id number] PCP - General Family Medicine 10/28/23 Anabelle Santiago MD Historical LMR Provider 03/09/17 Toño Lopez MD [address] [facility], [address] [place] [address] [email or web address] Historical LMR Provider 03/09/17 05/27/21 Mita Faustin MD [address] [facility], 2nd [place] [address] [email or web address] Historical LMR Provider 03/09/17 05/27/21 Tommy Enriquez MD, MS [address] [place] [address] [email or web address] Historical LMR Provider 03/09/17 05/27/21 Carmelo Middleton MD [address] [place] [address] [email or web address] Historical LMR Provider 03/09/17 05/27/21 Austin Pyle MD [address] [facility], [address] [address] [email or web address] Historical LMR Provider 03/09/17 05/27/21 Jeronimo Wood CNP [address] [address] [email or web address] Historical LMR Provider 03/09/17 05/27/21 Leonel Rivera MD [address] [place] [id number] [email or web address] 09/29/24 documented as of this encounter Additional Source Comments The information contained in this document represents components of the legal health record. It is not the complete legal health record.[facility]
--- OUTSIDE RECORDS SUMMARY | 2025-02-17 13:16 | XMS_ITS | Clinical Summary ---
Author Organization [facility] Address [address] [place] [address] Phone Care Team Providers Care Sitecore Developer Name Role Phone Anabelle Santiago MD Unavailable [phone] Anabelle Santiago MD Primary Care Provider [phone] Leonel Rivera MD Unavailable [phone] Allergies Active Allergy Reactions Criticality Noted Date Comments Bee Pollen 03/30/2020 Cephalexin 10/15/2022 Medications multivitamin per tablet as directed Orally Active ipratropium-albu terol (DUONEB) 0.5-2.5 mg/3 mL nebulizer solution as needed. Active gabapentin (NEURONTIN) 300 MG capsule Take 2 capsules (600 mg total) by mouth every morning. 1 capsule Orally Three times a day 07/09/19 19 Active Additional Information Patient taking differently:600 mg OralNightly, 1 capsule Orally Three times a day , Reported on 08/15/2023 furosemide (LASIX) 40 MG tablet Take 60 mg by mouth daily. patient is taking 1 +1/2 tablet daily for a total of 60 mg Active EPINEPHrine 0.3 mg/0.3 mL auto-injector INJECT AT FIRST SIGN OF ANAPHYLAXIS THEN GO TO ER 12/30/19 20 Active omeprazole (PRILOSEC) 20 MG capsule daily. 03/07/20 20 Active polyethylene glycol (MIRALAX) 17 gram packet MIX 1 PACKET WITH 8 OUNCES OF FLUID & DRINK ONCE A DAY 12/28/19 20 Active diclofenac sodium (VOLTAREN) 1 % Gel APPLY 2 GRAMS TO THE AFFECTED AREA(S) 4 TIMES A DAY 03/07/20 20 Active PAIN RELIEF EXTRA STRENGTH 500 mg tablet TAKE 2 TABLETS BY MOUTH EVERY 6 HOURS NEEDED 12/29/19 20 Active lidocaine 5 % ointment APPLY 1-2 GRAMS TO AFFECTED AREA 2-4 TIMES DAILY. ONLY TO SINGLE BODY PART PER APPLICATION FEET HAND 09/23/19 Active albuterol (ACCUNEB) 1.25 mg/3 mL nebulizer solution INHALE 1 AMPULE VIA NEBULIZER 3 TIMES A DAY NEEDED 09/22/19 22 Active loratadine (CLARITIN) 10 mg tablet Take 10 mg by mouth daily. 09/23/19 22 Active albuterol 90 mcg/actuation inhalerIndicatio ns:Medication refill Inhale 2 puffs into the lungs every 4 (four) hours as needed for wheezing. 18 g 1 05/07/20 23 Active cyclobenzaprine (FLEXERIL) 5 MG tablet TAKE 1 TABLET BY MOUTH 1 OR 2 TIMES DAILY NEEDED 07/30/19 24 Active fluticasone propionate (FLONASE) 50 mcg/actuation nasal spray INHALE 1 SPRAY EVERY DAY, INTRANASALLY 07/30/19 24 Active olopatadine (PATANASE) 0.6 % Grandin USE 2 SPRAYS INTO EACH NOSTRIL TWICE A DAY 10/29/19 24 Active fluticasone-umec lidin-vilanter (TRELEGY ELLIPTA) 200-62.5-25 mcg inhalerIndicatio ns:Moderate persistent asthma without complication Inhale 1 puff into the lungs daily. Rinse mouth and throat after to reduce the risk of thrush. 180 each 3 12/21/19 24 Active nystatin (NYSTOP) powder Apply topically 2 (two) times a day. APPLY TO AFFECTED AREA 05/14/20 24 Active montelukast (SINGULAIR) 10 mg tabletIndication s:Moderate persistent asthma without complication Take 1 tablet (10 mg total) by mouth nightly at bedtime. 90 tablet 3 08/04/19 25 026 Active oxyCODONE 5 MG immediate release tablet Take 1 tablet (5 mg total) by mouth every 6 (six) hours as needed for pain (specific location in comments). Partial fill ok 8 tablet 09/24/19 25 Active modafiniL (PROVIGIL) 200 MG tabletIndication s:Narcolepsy Take 2 tablets (400 mg total) by mouth every morning. 60 tablet 5 08/04/19 25 025 Hospital, Clinic, or Other Facility Administered Medication Ordered Dose Route Frequency Start Date End Date Status triamcinolone acetonide (KENALOG-40) 40 mg/mL injection 40 mg 40 mg See Adm Inst See admin instructions 02/06/2024 Active Active Problems Problem Noted Date Diagnosed Date Right carpal tunnel syndrome 09/23/2024 Trigger finger, right middle finger 09/23/2024 Fibromyalgia 10/16/2018 Positive ALVARO (antinuclear antibody) 09/16/2018 Pain in both hands 09/16/2018 Sicca syndrome 09/16/2018 GERD (gastroesophageal reflux disease) 9 Assessment & Plan (07/05/2018 1:46 PM EST): Continue Carafate and PPI Pneumonia, unspecified organism 07/04/2018 Assessment & Plan (07/08/2018 4:26 PM EST): Community-acquired pneumonia with underlying asthma/COPD, treated as an outpatient by Dr. Rowley. Pain at the patient's left low back likely correlates to inflammatory process in left lung, no evidence of effusion on CTA. Has home nebulizers but no home oxygen. -Continue antibiotics for total 7-day course. Ceftriaxone transition to Vantin. Azithromycin discontinued after allergic reaction to infiltration. Benadryl effective. -Oxycodone/ibuprofen for pleurisy, CTA was negative for PE. Now off of IV Toradol. -Lasix now resumed -Daily BMP, today stable -Mucinex -Steroids transition to oral on 07/06, today 40 mg. Plan to slow taper not to go below 20 mg until she follows up with her race relations professor, Dr. Shah. -IS -No indication for repeat imaging at this time. No effusion or empyema suspected. Nodule noted on prior CTA will need follow-up imaging when acute illness is complete. -Encourage ambulation. PT/OT evaluations completed. Patient was able to tolerate 10 stairs with drop in oxygen saturation to 91%. Some shortness of breath noted. Able to walk around the hallway 1 circuit with her boyfriend as well. -Case management involved for discharge planning. May be ready on 07/09 Asthma 03/17/2017 Assessment & Plan (07/07/2018 8:18 AM EST): Patient's asthmatic exacerbation caused by pneumonia -Continue oral steroids, will need slow taper for discharge -Continue inhaled nebulizer therapy. Home regimen includes Pulmicort, Flovent, Spiriva and nebulizers. -Outpatient follow-up with Dr. Shah after discharge Chronic obstructive pulmonary disease 03/17/2017 Disease due to gram-negative bacteria 03/17/2017 Helicobacter pylori gastritis 03/17/2017 Hypothyroidism 03/17/2017 Infection due to bacteria re sistant to multiple antimicrobial drugs 03/17/2017 Morbid obesity with BMI of 50.0-59.9, adult 02/18 Assessment & Plan (03/19/2017 1:02 PM EDT): Encouraged low calorie diet Osteoarthritis involving mul tiple joints on both sides of body 03/17/2017 Perennial allergic rhinitis 03/17/2017 Tobacco use 03/17/2017 Assessment & Plan (07/05/2018 1:40 PM EST): Declined nicotine replacement Assessment & Plan (03/19/2017 1:03 PM EDT): No nicotine supplements required during this hospitalization. No cravings. Patient is interested in tobacco cessation. She will follow-up with PCP to discuss options. 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 Cough improved. Loose sputum. Sputum culture showed normal respiratory miguelina. Symptoms improved. Will be transitioned to oral steroids for discharge with slow taper. She will continue home nebulizer use, in addition to full asthma regimen. She will arrange for follow- up with Dr. Cobb her race relations professor. Narcolepsy 03/17/2017 Assessment & Plan (07/05/2018 1:39 PM EST): Continued non-formulary narcolepsy medications Assessment & Plan (03/19/2017 1:01 PM EDT): Continue Nuvigil daily. This was not brought in by family and not continue during this hospitalization. 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 Keflex course completed. White blood cell count elevated secondary to steroid use. X-ray performed showing no acute process. Low suspicion for pneumonia. Encounters Date Type Department Care Team Description 12/17/2024 Procedure Pass [facility] Endoscopy Admitting Dept Virtual Department [address] [place] [address] 12/17/2024 Hospital Encounter [facility] Endoscopy Admitting Dept Virtual Department [address] [place] [address] Omega Leon MD 12/16/2024 11:59 PM EDT Anesthesia Event [facility] Endoscopy Admitting Dept Virtual Department [address] [place] [address] Jsoe Tovar Jr., DO from Last 3 Months Immunizations Immunization Administration Dates Next Due Influenza Quadrivalent Preservative Free IM 02/19 Family History Medical History Relation Comments CV disease Father Diabetes mellitus Father Hypertension Father Diabetes mellitus Maternal Aunt CV disease Maternal Grandfather Stroke Maternal Grandfather Diabetes mellitus Maternal Grandmother Hypertension Maternal Grandmother Cancer Mother Hypertension Mother Cancer Sibling Breast cancer Sister Relation Status Comments Father Alive Maternal Aunt Maternal Grandfather Maternal Grandmother Mother Alive Sibling Sister Social History Tobacco Use Types Packs/Day Years Used Date Smoking Tobacco: Former Cigarettes Smokeless Tobacco: Never Tobacco Cessation:Counseling Given: Not Answered Comments:quit May 2019 Alcohol Use Standard Drinks/Week Comments Yes 0 (1 standard drink = 0.6 oz pur e alcohol) couple of drinks per month Education Answer Date Recorded Are you interested in more education? Not on hina e 09/14/2022 Are you concerned about learning? Not on file 09/14/2022 No 09/14/2022 No 09/14/2022 Digital Access Answer Date Recorded No 10/13/2022 No 10/13/2022 Reliable internet access at home? Not on file 10/13/2022 Device with a working camera? Not on file Intimate Partner Violence Answer Date R ecorded Are you denied basic needs s uch as food, clothing, or medical care? No 10/28/2023 In the past 12 months have y ou been in a relationship with a person who hurts, threatens, or tries to control you? No 10/28/2023 Are you denied basic needs s uch as food, clothing, or medical care? No 10/28/2023 In the past 12 months have y ou been in a relationship with a person who hurts, threatens, or tries to control you? No 10/28/2023 Comments No Sex and Gender Information Value Date Recorded Sex Assigned at Female 08/18/2017 9:48 PM EDT Legal Sex Female 9:34 PM EDT Gender Identity Female 08/18/2017 9:48 PM EDT Sexual Orientation Straight 05/16/2018 1: 02 PM EST Last Filed Vital Signs Vital Sign Reading Time Taken Comments Blood Pressure 142/85 09/23/2024 1:30 PM EDT Pulse 58 09/23/2024 12:55 PM EDT Temperature 36.1 C (97 F) 09/23/2024 12:14 PM EDT Respiratory Rate 13 09/23/2024 12:55 PM EDT Oxygen Saturation 95% 09/23/2024 12:55 PM EDT Inhaled Oxygen Concentration - - Weight 99.8 kg (220 lb) 12/16/2024 11:59 AM EDT Height 157.5 cm (5' 2 ) 12/16/2024 11:59 AM EDT Body Mass Index 40.24 12/16/2024 11:59 AM EDT Plan of Treatment Health Maintenance Due Date Last Done Comments DEPRESSION SCREENING 1982 SMOKING Hx and SMOKELESS TOBACCO SCREENING 1983 HEPATITIS C SCREENING 1988 HIV ONE-TIME SCREENING (18-65 YEARS) 1988 COLOGUARD 2015 COLONOSCOPY 2015 COLORECTAL CANCER SCREENING 2015 FIT TEST 2015 FOBT 2015 SIGMOIDOSCOPY 2015 VIRTUAL COLONOSCOPY 2015 PNEUMOCOCCAL VACCINES (50+ years) (2 of 2 - PCV) 07/07/2016 07/07/2015 MAMMOGRAM 11/16/2017 11/17/2015 ZOSTER VACCINES (1 of 2) 2020 LIPID PANEL 04/24/2022 04/24/2017 INFLUENZA VACCINE (#1) 2024 8, 02/10/2018, 03/19/2017, Additional history exists COVID-19 VACCINE ( season) 2025 02/27/2022, 01/02/2021, 12/12/2020 Adult Td,Tdap Booster 11/13/2025 11/14/2015 , 11/03/2015, 10/18/2005 PAP SMEAR 11/19/2026 11/20/2023 SCREENING FOR DIABETES 10/10/2027 10/09/2024 HEPATITIS A VACCINES Aged Out No long er eligible based on patient's age to complete this topic HIB VACCINES Aged Out No longer eligi ble based on patient's age to complete this topic MENINGOCOCCAL VACCINES (ACWY) Aged Out No longer eligible based on patient's age to complete this topic MENINGOCOCCAL VACCINES (B) Aged Out N o longer eligible based on patient's age to complete this topic Medical Devices Not on file Procedures Procedure Name Priority Date/Time Associated Diagnosis Comments PAP TEST Routine 11/20/2023 12:00 AM EDT from Last 3 Months or Most Recently Relevant to Health Maintenance Results * Pap Test (11/20/2023 12:00 AM EDT) 11/20/2023 11/22/2023 9:2 8 AM EDT Narrative SEE NARRATIVE - 11/27/2023 10:05 AM EDT [address] [address] Carriage Setter: Laura Hurley MD FIRE SPRINKLER DESIGNER Cytology Report FINAL DIAGNOSIS A. PAP SMEAR (THIN PREP) CE: SPECIMEN ADEQUACY: Satisfactory for evaluation; transformation zone present. INTERPRETATION: NEGATIVE FOR INTRAEPITHELIAL LESION OR MALIGNANCY. This specimen was analyzed by the automated ThinPrep Imaging System (Mister Spex.) and the selected alcala were reviewed by a armhole presser. Electronically Signed Out By: SHON Wheeler(ASCP) The Pap test is a screening test primarily for squamous cancers and precursors and has associated false-negative and false-positive results. New technologies such as liquid-based preparations may decrease but will not eliminate all false-negative results. Regular sampling and follow-up of unexplained clinical signs and symptoms are recommended to minimize false negative results. PROCEDURES/ADDENDA HPV Testing (Requested) Ordered Date: 11/22/2023 A. PAP SMEAR (THIN PREP) CE: Human Papilloma Virus Test NEGATIVE for high-risk Human Papilloma Virus types 16, 18, 45 and the Other high risk probe set (Includes 31, 33, 35, 39, 51, 52, 56, 58, 59, 66, 68) Note: Testing performed by [employer]ef[employer] HR-HPV analysis. Clinical correlation is advised. This HPV test was performed at [facility], [address] [place] [address]. This test has been FDA approved for both SurePath and ThinPrep cervical cytology specimens. The accuracy and precision of this test for all other specimen sources has been verified in the Cytopathology Laboratory of the [facility] and has not been cleared or approved by the U.S. Food and Drug Administration. Clinical correlation is advised. CLINICAL HISTORY Date of Last Menstrual Period: Not Provided Menstrual History: No LMP given Other Clinical Conditions: Screening Pap SPECIMEN SOURCE A: PAP SMEAR (THIN PREP) CE Patient Name: LAURA SNYDER : 1970 (Age: 53) Sex: F Institution: [facility] Location: [facility] Date of Collection: 11/20/2023 Date of Reported: 11/27/2023 10:05 Results to: Anabelle Santiago MD us Anabelle Santiago MD CYTOLOGY ORDERABLES Final R esult SEE NARRATIVE from Last 3 Months or Most Recently Relevant to Health Maintenance Insurance [employer] MEDICARE REPLACEMENT [place]IC[place] [id number] MEDICARE REPLACEMENT MEDICARE REPLACEMENT CARE MEDICARE REPLACEMENT MEDICARE REPLACEMENT Advance Directives For more information, please contact: [phone] (9AM - 5PM Myriam/[facility], Saturday-Saturday) * Full Code (Presumed) (Latest Code Status on File) Date Activated Date Inactivated Comments 07/04/2018 11:04 PM 07/09/2018 2:06 PM * Full Code (Confirmed) Date Activated Date Inactivated Comments 03/17/2017 5:39 PM 03/19/2017 5:30 PM Question Answer Comments Code Discussion Comments: patient Care Teams Sitecore Developer Relationship Specialty Start Date End Date Anabelle Santiago MD [address] [place] [address] [email or web address] PCP - General Family Medicine 10/28/23 Anabelle Santiago MD Historical LMR Provider 03/09/17 Leonel Rivera MD [address] [place] [address] [email or web address] Sports Medicine 09/29/24 Additional Source Comments The information contained in this document represents components of the legal health record. It is not the complete legal health record.[facility]
--- OUTSIDE RECORDS SUMMARY | 2025-02-17 13:16 | XMS_ITS | Encounter Summary ---
Author Organization [facility] Address [address] [place] [address] Phone Care Team Providers Care Kidney Puller Name Role Phone Anabelle Santiago MD Unavailable [phone] Anabelle Santiago MD Primary Care Provider [phone] Leonel Rivera MD Unavailable Encounter Details Date Type Department Care Team (Late st Contact Info) Description 12/17/2024 Procedure Pass [facility] Endoscopy Admitting Dept Virtual Department [address] [place] [address] Social History Tobacco Use Types Packs/Day Years [...] documented as of this encounter Visit Diagnoses Not on filedocumented in this encounter Care Teams Kidney Puller Relationship Specialty Start Date End Date Anabelle Santiago MD [address] [place] [address] PCP - General Family Medicine 10/28/23 Anabelle Santiago MD Historical LMR Provider 03/09/17 Leonel Rivera MD [address] [place] [address] [email or web address] Sports Medicine 09/29/24 documented as of this encounter Additional Source Comments The information contained in this document represents components of the legal health record. It is not the complete legal health record.[facility]
--- OUTSIDE RECORDS SUMMARY | 2025-02-17 13:16 | XMS_ITS | Encounter Summary ---
Author Organization [facility] Address [address] [place] [address] Phone Care Team Providers Care Silviculture Teacher Name Role Phone Anabelle Santiago MD Unavailable [phone] Toño Lopez MD Unavailable Mita Faustin MD Unavailable [phone] Tomym Enriquez MD, MS Unavailable [phone] Carmelo Middleton MD Unavailable [phone] Austin Pyle MD Unavailable [phone] Jeronimo Wood CNP Unavailable [phone] Anabelle Santiago MD Primary Care Provider [phone] Anabelle Santiago MD Primary Care Provider [phone] Leonel Rivera MD Unavailable [phone] Encounter Details Date Type Department Care Team (Late st Contact Info) Description 10/02/2018 Procedure Pass [facility] Endoscopy Admitting Dept Virtual Department [address] [place] [address] Social History Tobacco Use Types Packs/Day Years Used Date Smoking Tobacco: Former Cigarettes Smokeless Tobacco: Never Comments:quit a few months a go Alcohol Use Standard Drinks/Week Comments Yes 0 [...] Diagnoses Not on filedocumented in this encounter Additional Health Concerns Infection Onset Date Last Indicated Resolved Time CoV-Risk 05/24/2020 05/25/2020 06/03/2020 1:24 AM EST CoV-Risk 07/06/2020 07/06/2020 07/16/2020 1:23 AM EST documented as of this encounter Care Teams Silviculture Teacher Relationship Specialty Start Date End Date Anabelle Santiago MD PCP - General Family Medicine 04/03/17 10/27/23 Anabelle Santiago MD [address] [place] [address] PCP - General Family Medicine 10/28/23 Anabelle Santiago MD Historical LMR Provider 03/09/17 Toño Lopez MD [address] [place] [address] Historical LMR Provider 03/09/17 05/27/21 Mita Faustin MD [address] [place] [address] Historical LMR Provider 03/09/17 05/27/21 Tommy Enriquez MD, MS [address] [place] [address] [email or web address] Historical LMR Provider 03/09/17 05/27/21 Carmelo Middleton MD [address] [place] [address] [email or web address] Historical LMR Provider 03/09/17 05/27/21 Austin Pyle MD [address] [place] [address] [email or web address] Historical LMR Provider 03/09/17 05/27/21 Jeronimo Wood CNP [address] [place] [address] [email or web address] Historical LMR Provider 03/09/17 05/27/21 Leonel Rivera MD [address] [place] [address] [email or web address] Medicine 09/29/24 documented as of this encounter Additional Source Comments The information contained in this document represents components of the legal health record. It is not the complete legal health record.[facility]
--- OUTSIDE RECORDS SUMMARY | 2025-02-17 13:16 | XMS_ITS | Encounter Summary ---
Author Organization [facility] Address [address] [place] [address] Phone Care Team Providers Care Dope Weigh Operator Name Role Phone Anabelle Santiago MD Unavailable [phone] Toño Lopez MD Unavailable Mita Faustin MD Unavailable [phone] Tommy Enriquez MD, MS Unavailable [phone] Carmelo Middleton MD Unavailable + [phone] Austin Pyle MD Unavailable [phone] Jeronimo Wood CNP Unavailable [phone] Anabelle Santiago MD Primary Care Provider [phone] Anabelle Santiago MD Primary Care Provider [phone] Leonel Rivera MD Unavailable [phone] Encounter Details Date Type Department Care Team (Late st Contact Info) Description 07/06/2020 Transcribe Orders Virtual Department [address] [place] [address] Anabelle Santiago MD [address] [place], [place] [phone] [email or web address] Cough (Primary Dx); Stuffy and runny nose; Nonintractable headache, unspecified chronicity pattern, unspecified headache type; Fatigue, unspecified type Social History Tobacco Use Types Packs/Day Years [...] on file documented as of this encounter Results * COVID-19 PCR Order (07/06/2020 12:34 PM EST) COVID Testing Status Specimen received in analyzing lab. Results should be available within 24 to 48 hrs. [facility] Symptomatic? YES [facility] 07/06/2020 12:3 4 PM EST 07/06/2020 1:50 PM EST Anabelle Santiago MD BODY FLUIDS AND STOOLS JOANNA HU Final Result Performing Organization Address City/State/[facility] Co de Phone Number [facility] [address] [place] [address] [facility] [address] [place] [address] documented in this encounter Visit Diagnoses Diagnosis Cough- Primary Stuffy and runny nose Other diseases of nasal cavity and sinuses Nonintractable headache, unspecified chronicity pattern, unspecified headache type Fatigue, unspecified type documented in this encounter Additional Health Concerns Infection Onset Date Last Indicated Resolved Time CoV-Risk 07/06/2020 07/06/2020 07/16/2020 1:23 AM EST documented as of this encounter Care Teams Dope Weigh Operator Relationship Specialty Start Date End Date Anabelle Santiago MD PCP - General Family Medicine 04/03/17 10/27/23 Anabelle Santiago MD [address] [place] [address] PCP - General Family Medicine 10/28/23 Anabelle Santiago MD Historical LMR Provider 03/09/17 Toño Lopez MD [address] [place] [address] Historical LMR Provider 03/09/17 05/27/21 Mita Faustin MD [address] [place] [address] [email or web address] Historical LMR Provider 03/09/17 05/27/21 Tommy Enriquez MD, MS [address] [place] [address] [email or web address] Historical LMR Provider 03/09/17 05/27/21 Carmelo Middleton MD [address] [place] [address] [email or web address] Historical LMR Provider 03/09/17 05/27/21 Austin Pyle MD [address] [place] [address] [email or web address] Historical LMR Provider 03/09/17 05/27/21 Jeronimo Wood, DIRECTOR PAID MEDIA [address] [place] [address] [email or web address] Historical LMR Provider 03/09/17 05/27/21 Leonel Rivera MD [address] [place] [address] [email or web address] Sports Medicine 09/29/24 documented as of this encounter Additional Source Comments The information contained in this document represents components of the legal health record. It is not the complete legal health record.[facility]
--- OUTSIDE RECORDS SUMMARY | 2025-02-17 13:17 | XMS_ITS | Encounter Summary ---
Author Organization [facility] Address [address] [place] [address] Phone Care Team Providers Care Senior Specialist Name Role Phone Anabelle Santiago MD Unavailable [phone] Tooñ Lopez MD Unavailable Mita Faustin MD Unavailable [phone] Tommy Enriquez MD, MS Unavailable [phone] Carmelo Middleton MD Unavailable +[phone] Austin Pyle MD Unavailable [phone] Jeronimo Wood CNP Unavailable [phone] Anabelle Santiago MD Primary Care Provider [phone] Anabelle Santiago MD Primary Care Provider [phone] Leonel Rivera MD Unavailable [phone] Reason for Referral * MRI/CAT Scan - Closed Specialty Diagnoses / Procedures Referred By Conthali t Referred To Contact Radiology Diagnoses Abdominal pain, epigastric Nausea Procedures CT Abdomen/Pelvis Brigitte Leonard PA Phone: tel: fax: Referral ID Status Reason Start Date Expiration Date Visits Re quested Visits Authorized [id number] Closed 12/18/2018 12/18/2019 1 1 Encounter Details Date Type Department Care Team (Latest Contact Info) Description 12/18/2018 Transcribe Orders Virtual Department 30 [place] [address] Brigitte Leonard PA 10 [place] [address] Abdominal pain, epigastric (Primary Dx); Nausea Social History Tobacco Use Types Packs/Day [...] documented as of this encounter Results * CT ABDOMEN/PELVIS WITH CONTRAST (12/29/2018 4:42 PM EDT) Anatomical Region Laterality Modality Abdomen, Pelvis Computed Tomogra phy 12/29/2018 6:27 PM EDT Impressions 12/29/2018 6:53 PM EDT 1. No intrahepatic or extrahepatic biliary ductal dilatation. 2. Unremarkable appearance of the pancreas. 3. Progressively increasing right adrenal mass, now measuring 2.8 cm. As previously mentioned, this could represent a benign adenoma. Correlate with lab results and additional imaging obtained at outside facilities (such as MRI of abdomen). TOTAL CTDIvol: 26.6 mGy POS - [id number] Narrative 12/29/2018 6:53 PM EDT EXAM: CT ABDOMEN/PELVIS WITH CONTRAST CT OF ABDOMEN AND PELVIS WITH INTRAVENOUS CONTRAST COMPARISON: CT of abdomen/pelvis on July 21, 2015 INDICATION: <N/A> no indication applies (use free text below) TECHNIQUE: CT scan of the abdomen and pelvis was performed following the intravenous administration of 100 cc of Omnipaque 240 and oral contrast. Coronal and sagittal reformatted images were generated. Automated exposure control utilized. FINDINGS: LOWER THORAX: No lung consolidation. No pleural effusion. HEPATOBILIARY: Liver is normal in size, contour and density. No focal hepatic lesions. No extra- or intrahepatic ductal dilatation. Status pos cholecystectomy. SPLEEN: Normal in size. PANCREAS: No focal lesion. No pancreatic ductal dilatation. No peripancreatic fat stranding. ADRENAL GLANDS: 2.8 cm right adrenal mass with 22 HU has been progressively increasing in size since study as far back as 2012 (measured 2.1 cm in 2016). Left adrenal gland is unremarkable. KIDNEYS AND URETERS: The kidneys enhance symmetrically. No hydronephrosis, hydroureter or mass. STOMACH/GI TRACT: Oral contrast reaches the ileum without obstruction. Stomach is partially distended, and filled with ingested content and oral contrast. There is no bowel distension, wall thickening, or inflammation. Normal appendix visualized on coronal image 6:53. PELVIC ORGANS/BLADDER: Urinary bladder is decompressed. Large uterine cervical stump is similar to 2016. PERITONEUM AND RETROPERITONEUM: No free fluid, fluid collection or free air. LYMPH NODES: No enlarged retroperitoneal, mesenteric or pelvic lymph nodes. VESSELS: Abdominal aorta and iliac arteries are normal in caliber. Inferior vena cava is unremarkable. BONES AND SOFT TISSUES: Fat-containing umbilical hernia. No acute or suspicious osseous abnormalities. Procedure Note Juan Anotnio Echeverria MD - 12/29/2018 EXAM: CT ABDOMEN/PELVIS WITH CONTRAST CT OF ABDOMEN AND PELVIS WITH INTRAVENOUS CONTRAST COMPARISON: CT of abdomen/pelvis on July 21, 2015 INDICATION: <N/A> no indication applies (use free text below) TECHNIQUE: CT scan of the abdomen and pelvis was performed following theintravenous administration of 100 cc of Omnipaque 240 and oral contrast.Coronal and sagittal reformatted images were generated. Automatedexposure control utilized. FINDINGS: LOWER THORAX: No lung consolidation. No pleural effusion. HEPATOBILIARY: Liver is normal in size, contour and density. No focalhepatic lesions. No extra- or intrahepatic ductal dilatation. Statuspos cholecystectomy. SPLEEN: Normal in size. PANCREAS: No focal lesion. No pancreatic ductal dilatation. Noperipancreatic fat stranding. ADRENAL GLANDS: 2.8 cm right adrenal mass with 22 HU has beenprogressively increasing in size since study as far back as 2012 (measured2.1 cm in 2016). Left adrenal gland is unremarkable. KIDNEYS AND URETERS: The kidneys enhance symmetrically. Nohydronephrosis, hydroureter or mass. STOMACH/GI TRACT: Oral contrast reaches the ileum without obstruction.Stomach is partially distended, and filled with ingested content and oralcontrast. There is no bowel distension, wall thickening, or inflammation.Normal appendix visualized on coronal image 6:53. PELVIC ORGANS/BLADDER: Urinary bladder is decompressed. Large uterinecervical stump is similar to 2016. PERITONEUM AND RETROPERITONEUM: No free fluid, fluid collection or freeair. LYMPH NODES: No enlarged retroperitoneal, mesenteric or pelvic lymphnodes. VESSELS: Abdominal aorta and iliac arteries are normal in caliber.Inferior vena cava is unremarkable. BONES AND SOFT TISSUES: Fat-containing umbilical hernia. No acute orsuspicious osseous abnormalities. IMPRESSION: 1. No intrahepatic or extrahepatic biliary ductal dilatation. 2. Unremarkable appearance of the pancreas. 3. Progressively increasing right adrenal mass, now measuring 2.8 cm. Aspreviously mentioned, this could represent a benign adenoma. Correlatewith lab results and additional imaging obtained at outside facilities(such as MRI of abdomen). TOTAL CTDIvol: 26.6 mGy POS - [id number] Brigitte STEWART IMG CT ABD/PELVIS Final Res ult documented in this encounter Visit Diagnoses Diagnosis Abdominal pain, epigastric- Primary Nausea Nausea alone Abdominal pain, epigastric Nausea Nausea alone documented in this encounter Additional Health Concerns Infection Onset Date Last Indicated Resolved Time CoV-Risk 05/24/2020 05/25/2020 06/03/2020 1:24 AM EST CoV-Risk 07/06/2020 07/06/2020 07/16/2020 1:23 AM EST documented as of this encounter Care Teams Senior Specialist Relationship Specialty Start Date End Date Anabelle Santiago MD PCP - General Family Medicine 04/03/17 10/27/23 Anabelle Santiago MD [address] [place] [address] PCP - General Family Medicine 10/28/23 Anabelle Santiago MD Historical LMR Provider 03/09/17 Toño Lopez MD [address] [place] [address] Historical LMR Provider 03/09/17 05/27/21 Mita Faustin MD [address] [place] [address] Historical LMR Provider 03/09/17 05/27/21 Tommy Enriquez MD, MS [address] [place] [address] [email or web address] Historical LMR Provider 03/09/17 05/27/21 Carmelo Middleton MD [address] [place] [address] [email or web address] Historical LMR Provider 03/09/17 05/27/21 Austin Pyle MD [address] [place] [address] Historical LMR Provider 03/09/17 05/27/21 Jeronimo Wood, BEFORE SCHOOL BABYSITTER [address] [place] [address] [email or web address] Historical LMR Provider 03/09/17 05/27/21 Leonel Rivera MD [address] [place], [place] [id number] [email or web address] 09/29/24 documented as of this encounter Additional Source Comments The information contained in this document represents components of the legal health record. It is not the complete legal health record.[facility]
--- OUTSIDE RECORDS SUMMARY | 2025-02-17 13:17 | XMS_ITS | Encounter Summary ---
Author Organization [facility] Address [address] [place] [address] Phone Care Team Providers Care Eyeglass Fitter Name Role Phone Anabelle Santiago MD Unavailable [phone] Anabelle Santiago MD Primary Care Provider [phone] Anabelle Santiago MD Primary Care Provider [phone] Leonel Rivera MD Unavailable [phone] Encounter Details Date Type Department Care Team (Late st Contact Info) Description 06/20/2021 Procedure Pass [facility], Ct Scan - [address] [id number] Social History Tobacco Use Types Packs/Day Years [...] PM EST documented as of this encounter Functional Status * Calculated C-SSRS Risk Score (Lifetime/Recent) Answer Date of Assessment Author No Risk Indicated 06/20/2021 7:23 PM EST Jorge Palencia, MANAS * [place] Suicide Severity Rating Scale (Screener/Recent Self-Report) Question Answer Date of Assessment Author 1. Wish to be (Past 1 Month) No 06/20/2021 7:23 PM EST [place] f[place], DIESEL ENGINE ASSEMBLER 2. Non-Specific Active Suicidal Thoughts (Past 1 Month) No 06/20/2021 7:23 PM BRAYAN [place] smithen Du ffy, DIESEL ENGINE ASSEMBLER 6. Suicidal Behavior (Lifetime) No 06/20/2021 7:23 PM Jorge Perry Du ffy, DIESEL ENGINE ASSEMBLER documented as of this encounter Plan of Treatment Not on file documented as of this encounter Visit Diagnoses Not on filedocumented in this encounter Care Teams Eyeglass Fitter Relationship Specialty Start Date End Date Anabelle Santiago MD PCP - General Family Medicine 04/03/17 10/27/23 Anabelle Santiago MD [address] [place] [address] PCP - General Family Medicine 10/28/23 Anabelle Santiago MD Historical LMR Provider 03/09/17 Leonel Rivera MD [address] [place] [address] [email or web address] 09/29/24 documented as of this encounter Additional Source Comments The information contained in this document represents components of the legal health record. It is not the complete legal health record.[facility]
--- OUTSIDE RECORDS SUMMARY | 2025-02-17 13:17 | XMS_ITS | Encounter Summary ---
Author Organization [facility] Address [address] [place] [address] Phone Care Team Providers Care Oven Baker Name Role Phone Anabelle Santiago MD Unavailable [phone] Anabelle Santiago MD Primary Care Provider [phone] Anabelle Santiago MD Primary Care Provider [phone] Leonel Rivera MD Unavailable [phone] Encounter Details Date Type Department Care Team (Late st Contact Info) Description 06/26/2022 Transcribe Orders Virtual Department 30 [place] [address] Sonia Hamilton NP [address] [place], [place] [id number] [email or web address] Chest pain, unspecified type (Primary Dx) Social History Tobacco Use Types Packs/Day Years [...] as of this encounter Visit Diagnoses Diagnosis Chest pain, unspecified type- Primary documented in this encounter Care Teams Oven Baker Relationship Specialty Start Date End Date Anabelle Santiago MD [email or web address] PCP - General Family Medicine 04/03/17 10/27/23 Anabelle Santiago MD [address] [place] [address] [email or web address] PCP - General Family Medicine 10/28/23 Anabelle Santiago MD [email or web address] Historical LMR Provider 03/09/17 Leonel Rivera MD [address] [place] [address] [email or web address] Sports Medicine 09/29/24 documented as of this encounter Additional Source Comments The information contained in this document represents components of the legal health record. It is not the complete legal health record.[facility]
--- OUTSIDE RECORDS SUMMARY | 2025-02-17 13:17 | XMS_ITS | Encounter Summary ---
Author Organization [facility] Address [address] [place] [address] Phone Care Team Providers Care Fuel Truck Driver Name Role Phone Anabelle Santiago MD Unavailable [phone] Toño Lopez MD Unavailable Mita Faustin MD Unavailable [phone] Tommy Enriquez MD, MS Unavailable [phone] Carmelo Middleton MD Unavailable + [phone] Austin Pyle MD Unavailable [phone] Jeronimo Wood CNP Unavailable [phone] Anabelle Santiago MD Primary Care Provider [phone] Anabelle Santiago MD Primary Care Provider [phone] Leonel Rivera MD Unavailable [phone] Encounter Details Date Type Department Care Team (Late st Contact Info) Description 12/31/2020 Procedure Pass [facility], Ct Scan - [address] [address] Social History Tobacco Use Types Packs/Day Years [...] Date of Assessment Author No Risk Indicated 12/31/2020 9:58 AM EDT Chandrakant Wang RN * [place] Suicide Severity Rating Scale (Screener/Recent Self-Report) Question Answer Date of Assessment Author 1. Wish to be (Past 1 Month) No 021 9:58 AM EDT Chandrakant Wang RN 2. Non-Specific Active Suici montserrat Thoughts (Past 1 Month) No 12/31/2020 9:58 AM EDT Vivek Wang RN 6. Suicidal Behavior (Lifetime) No 9:58 AM EDT Chandrakant Wang RN documented as of this encounter Plan of Treatment Not on file documented as of this encounter Visit Diagnoses Not on filedocumented in this encounter Care Teams Fuel Truck Driver Relationship Specialty Start Date End Date Anabelle Santiago MD PCP - General Family Medicine 04/03/17 10/27/23 Anabelle Santiago MD [address] [place] [address] PCP - General Family Medicine 10/28/23 Anabelle Santiago MD Historical LMR Provider 03/09/17 Toño Lopez MD [address] [place] [address] Historical LMR Provider 03/09/17 05/27/21 Mita Faustin MD [address] [address] [email or web address] Historical LMR Provider 03/09/17 05/27/21 Tommy Enriquez MD, MS [address] [place] [address] Historical LMR Provider 03/09/17 05/27/21 Carmelo Middleton MD [address] [place] [address] [email or web address] Historical LMR Provider 03/09/17 05/27/21 Austin Pyle MD 22 [facility], [address] [address] [email or web address] Historical LMR Provider 03/09/17 05/27/21 Jeronimo Wood CNP [address] [address] anne Historical LMR Provider 03/09/17 05/27/21 Leonel Rivera MD [address] [place] [address] [email or web address] Medicine 09/29/24 documented as of this encounter Additional Source Comments The information contained in this document represents components of the legal health record. It is not the complete legal health record.[facility]
--- OUTSIDE RECORDS SUMMARY | 2025-02-17 13:17 | XMS_ITS | Encounter Summary ---
Author Organization [facility] Address [address] [place] [address] Phone Care Team Providers Care Hand Roller Engraver Name Role Phone Anabelle Santiago MD Unavailable [phone] Toño Lopez MD Unavailable Mita Faustin MD Unavailable [phone] Tommy Enriquez MD, MS Unavailable [phone] Carmelo Middleton MD Unavailable + [phone] Austin Pyle MD Unavailable [phone] Jeronimo Wood CNP Unavailable [phone] Anabelle Santiago MD Primary Care Provider [phone] Anabelle Santiago MD Primary Care Provider [phone] Leonel Rivera MD Unavailable [phone] Encounter Details Date Type Department Care Team (Latest Contact Info) Description 12/17/2018 Transcribe Orders [facility] [address] [address] Brigitte Leonard PA 10 [place], [place] [phone] Nausea (Primary Dx); Abdominal pain, epigastric Social History Tobacco Use Types Packs/Day Years [...] documented as of this encounter Results * Lipase (12/17/2018 2:14 PM EDT) LIPASE 21 16 - 63 U/L [facility] Blood 12/17/2018 2:14 PM EDT 12/17/2018 2:22 PM EDT us Brigitte STEWART LAB BLOOD ORDERABLES Final Result Performing Organization Address City/State/[facility] Co de Phone Number [address] [address] * (ABNORMAL) Comprehensive metabolic panel (12/17/2018 2:14 PM EDT) SODIUM 135 133 - 146 mmol/L [facility] POTASSIUM 3.2(L) 3.3 - 5.1 mmol/L [facility] CHLORIDE 98 96 - 108 mmol/L [facility] CO2 24 21 - 35 mmol/L [facility] BUN 11 6 - 19 mg/dL [facility] CREATININE 0.50 0.5 - 1.5 mg/dL [facility] GLUCOSE 102(H) 70 - 99 mg/dL [facility] ALBUMIN 3.9 3.9 - 4.8 g/dL [facility] TOTAL PROTEIN 6.9 6.5 - 8.0 g/dL [facility] CALCIUM 9.6 8.4 - 10.3 mg/dL [facility] ALKALINE PHOSPHATASE 114 39 - 117 U/L [facility] TOTAL BILIRUBIN 0.2 0.0 - 1.2 mg/dL [facility] AST 24 0 - 37 U/L [facility] ALT 20 0 - 40 U/L [facility] GLOBULIN 3.0 1 - 4.8 g/dL [facility] EGFR 114 >59 mL/min/1.7 3m2 [facility] Comment:If patient is black, multiply result by 1.159. Estimated glomerular filtration rate calculated using the CKD-EPI equation. ANION GAP 16 10 - 20 mmol/L [facility] Blood 12/17/2018 2:14 PM EDT 12/17/2018 2:22 PM EDT us Brigitte STEWART LAB BLOOD ORDERABLES Final Result [facility] [address] [place] [address] * (ABNORMAL) CBC and differential (12/17/2018 2:14 PM EDT) WBC 11.37(H) 3.40 - 11.20 K/uL [facility] RBC 4.47 3.80 - 4.80 M/uL [facility] HGB 12.6 12.0 - 15.0 g/dL [facility] HCT 37.6 36.0 - 46.0 % [facility] PLT 262 130 - 400 K/uL [facility] MCV 84.1 79.0 - 98.0 fL [facility] MCH 28.2 27.0 - 34.8 pg [facility] MCHC 33.5 31.5 - 36.0 g/dL [facility] RDW 14.3 10.8 - 14.6 % [facility] MPV 11.5 9.4 - 12.4 fl [facility] NRBC 0.00 0.00 /100 WBCs [facility] ABSOLUTE NRBC 0.00 0.00 K/uL [facility] DIFF METHOD Auto [facility] NEUTS 78.4(H) 45.30 - 77.70 % [facility] LYMPHS 15.3 12.30 - 39.70 % [facility] MONOS 4.7 4.10 - 12.80 % [facility] EOS 0.7 0 - 7.2 % [facility] BASOS 0.3 0 - 2.80 % [facility] Granulocytes, immature (%) 0.6 0.0 - 0.9 % [facility] ABSOLUTE NEUTS 8.92(H) 1.40 - 7.70 K/uL [facility] ABSOLUTE LYMPHS 1.74 0.60 - 3.20 K/uL [facility] ABSOLUTE MONOS 0.53 0.11 - 0.59 K/uL [facility] ABSOLUTE EOS 0.08 0.01 - 0.50 K/uL [facility] ABSOLUTE BASOS 0.03 0.00 - 0.08 K/uL [facility] Granulocytes, immature 0.07(H) 0.00 - 0.05 K/uL [facility] Blood 12/17/2018 2:14 PM EDT 12/17/2018 2:22 PM EDT us Brigitte STEWART LAB BLOOD ORDERABLES Final Result Performing Organization Address City/State/[facility] Co de Phone Number [facility] [address] [place] [address] documented in this encounter Visit Diagnoses Diagnosis Nausea- Primary Nausea alone Abdominal pain, epigastric documented in this encounter Additional Health Concerns Infection Onset Date Last Indicated Resolved Time CoV-Risk 05/24/2020 05/25/2020 06/03/2020 1:24 AM EST CoV-Risk 07/06/2020 07/06/2020 07/16/2020 1:23 AM EST documented as of this encounter Care Teams Hand Roller Engraver Relationship Specialty Start Date End Date Anabelle Santiago MD PCP - General Family Medicine 04/03/17 10/27/23 Anabelle Santiago MD [address] [place] [address] PCP - General Family Medicine 10/28/23 Anabelle Santiago MD Historical LMR Provider 03/09/17 Toño Lopez MD [address] [address] [email or web address] Historical LMR Provider 03/09/17 05/27/21 Mita Faustin MD [address] [address] [email or web address] Historical LMR Provider 03/09/17 05/27/21 Tommy Enriquez MD, MS [address] [place] [address] [email or web address] Historical LMR Provider 03/09/17 05/27/21 Carmelo Middleton MD [address] [place] [address] [email or web address] Historical LMR Provider 03/09/17 05/27/21 Austin Pyle MD [address] [address] [email or web address] Historical LMR Provider 03/09/17 05/27/21 Jeronimo Wood CNP [address] [place] [address] [email or web address] Historical LMR Provider 03/09/17 05/27/21 Leonel Rivera MD [address] [place] [address] [email or web address] Sports Medicine 09/29/24 documented as of this encounter Additional Source Comments The information contained in this document represents components of the legal health record. It is not the complete legal health record.[facility]
--- OUTSIDE RECORDS SUMMARY | 2025-02-17 13:17 | XMS_ITS | Encounter Summary ---
Author Organization [facility] Address [address] [place] [address] Phone Care Team Providers Care Ring Sewer Name Role Phone Anabelle Santiago MD Unavailable [phone] Toño Lopez MD Unavailable Mita Faustin MD Unavailable [phone] Tommy Enriquez MD, MS Unavailable +[phone] Carmelo Middleton MD Unavailable + [phone] Austin Pyle MD Unavailable [phone] Jeronimo Wood CNP Unavailable +[phone] Anabelle Santiago MD Primary Care Provider [phone] Anabelle Santiago MD Primary Care Provider [phone] Leonel Rivera MD Unavailable +[phone] Encounter Details Date Type Department Care Team (Late st Contact Info) Description 03/13/2021 Procedure Pass [facility], Ct Scan - [address] [address] Social History Tobacco Use Types Packs/Day Years [...] Date of Assessment Author No Risk Indicated 03/13/2021 6:32 PM EDT [place] Pimentel, BARBIE * [place] Suicide Severity Rating Scale (Screener/Recent Self-Report) Question Answer Date of Assessment Author 1. Wish to be (Past 1 Month) No 03/13/2021 6:32 PM EDT New Nascimento, BARBIE 2. Non-Specific Active Suicidal Thoughts (Past 1 Month) No 03/13/2021 6:32 PM EDT New Nascimento, BARBIE 6. Suicidal Behavior (Lifetime) No 03/13/2021 6:32 PM EDT New Nascimento, BARBIE documented as of this encounter Plan of Treatment Not on file documented as of this encounter Visit Diagnoses Not on filedocumented in this encounter Care Teams Ring Sewer Relationship Specialty Start Date End Date Anabelle Santiago MD PCP - General Family Medicine 04/03/17 10/27/23 Anabelle Santiago MD [address] [place] [address] PCP - General Family Medicine 10/28/23 Anabelle Santiago MD Historical LMR Provider 03/09/17 Toño Lopez MD [address] [place] [address] Historical LMR Provider 03/09/17 05/27/21 Mita Faustin MD [address] [address] Historical LMR Provider 03/09/17 05/27/21 Tommy Enriquez MD, MS [address] [place] [address] [email or web address] Historical LMR Provider 03/09/17 05/27/21 Carmelo Middleton MD [address] [place] [address] [email or web address] Historical LMR Provider 03/09/17 05/27/21 Austin Pyle MD 22 [facility], [address] [place] [address] [email or web address] Historical LMR Provider 03/09/17 05/27/21 Jeronimo Wood CNP [address] [address] anne [email or web address] Historical LMR Provider 03/09/17 05/27/21 Leonel Rivera MD [address] [place] [address] [email or web address] 09/29/24 documented as of this encounter Additional Source Comments The information contained in this document represents components of the legal health record. It is not the complete legal health record.[facility]
--- OUTSIDE RECORDS SUMMARY | 2025-02-17 13:17 | XMS_ITS | Encounter Summary ---
Author Organization [facility] Address [address] [place] [address] Phone Care Team Providers Care Physical Education Aide Name Role Phone Anabelle Santiago MD Unavailable [phone] Toño Lopez MD Unavailable Mita Faustin MD Unavailable [phone] Tommy Enriquez MD, MS Unavailable +[phone] Carmelo Middleton MD Unavailable + [phone] Austin Pyle MD Unavailable [phone] Jeronimo oWod CNP Unavailable +[phone] Anabelle Santiago MD Primary Care Provider [phone] Anabelle Santiago MD Primary Care Provider [phone] Leonel Rivera MD Unavailable +[phone] Encounter Details Date Type Department Care Team (Late st Contact Info) Description 10/15/2020 Procedure Pass [facility], Ct Scan - [address] [address] Social History Tobacco Use Types Packs/Day Years [...] Date of Assessment Author No Risk Indicated 10/15/2020 5:31 PM EDT Claudette Priest, BARBIE * [place] Suicide Severity Rating Scale (Screener/Recent Self-Report) Question Answer Date of Assessment Author 1. Wish to be (Past 1 Month) No 021 5:31 PM EDT Claudette Rich, BARBIE 2. Non-Specific Active Suici montserrat Thoughts (Past 1 Month) No 10/15/2020 5:31 PM EDT Claudette Rich RN 6. Suicidal Behavior (Lifetime) No 5:31 PM EDT Claudette Rich RN documented as of this encounter Plan of Treatment Not on file documented as of this encounter Visit Diagnoses Not on filedocumented in this encounter Care Teams Physical Education Aide Relationship Specialty Start Date End Date Anabelle Santiago MD PCP - General Family Medicine 04/03/17 10/27/23 Anabelle Santiago MD [address] [place] [address] PCP - General Family Medicine 10/28/23 Anabelle Santiago MD Historical LMR Provider 03/09/17 Toño Lopez MD [address] [place] [address] Historical LMR Provider 03/09/17 05/27/21 Mita Faustin MD [address] [address] [email or web address] Historical LMR Provider 03/09/17 05/27/21 Tommy Enriquez MD, MS [address] [place] [address] [email or web address] Historical LMR Provider 03/09/17 05/27/21 Carmelo Middleton MD [address] [place] [address] [email or web address] Historical LMR Provider 03/09/17 05/27/21 Austin Pyle MD 22 [facility], [address] [address] [email or web address] Historical LMR Provider 03/09/17 05/27/21 Jeronimo Wood CNP [address] [address] anne Historical LMR Provider 03/09/17 05/27/21 Leonel Rivera MD [address] [place] [address] [email or web address] Sports Medicine 09/29/24 documented as of this encounter Additional Source Comments The information contained in this document represents components of the legal health record. It is not the complete legal health record.[facility]
--- OUTSIDE RECORDS SUMMARY | 2025-02-17 13:17 | XMS_ITS | Encounter Summary ---
Author Organization [facility] Address [address] [place] [address] Phone Care Team Providers Care Siebel Architect Name Role Phone Anabelle Santiago MD Unavailable [phone] Toño Lopez MD Unavailable Mita Faustin MD Unavailable [phone] Tommy Enriquez MD, MS Unavailable [phone] Carmelo Middleton MD Unavailable + [phone] Austin Pyle MD Unavailable [phone] Jeronimo Wood CNP Unavailable [phone] Anabelle Santiago MD Primary Care Provider [phone] Anabelle Santiago MD Primary Care Provider [phone] Leonel Rivera MD Unavailable [phone] Reason for Referral * MRI/CAT Scan - Closed Specialty Diagnoses / Procedures Referred By Conthali t Referred To Contact Radiology Diagnoses Other specified disorders of kidney and ureter Procedures MRI Abdomen Anabelle Santiago MD Phone: tel: fax: mailto: Referral ID Status Reason Start Date Expiration Date Visits Re quested Visits Authorized [id number] Closed 10/28/2020 10/28/2021 1 1 Encounter Details Date Type Department Care Team (Late st Contact Info) Description 10/28/2020 Transcribe Orders Virtual Department [address] [place] [address] Anabelle Santiago MD [address] [place] [address] Other specified disorders of kidney and ureter (Primary Dx) Social History Tobacco Use Types [...] documented as of this encounter Results * MRI ABDOMEN WITH AND WITHOUT CONTRAST (12/23/2020 8:53 PM EDT) Anatomical Region Laterality Modality Abdomen Magnetic Resonan ce 12/24/2020 9:27 AM EDT Impressions 12/24/2020 9:59 AM EDT Known right adrenal nodule. Based on the CT images, mild interval increase in size from 2019 studies, but signal characteristics compatible with benign adenoma. Narrative 12/24/2020 9:59 AM EDT MRI ABDOMEN WITH AND WITHOUT CONTRAST TECHNIQUE: MR of the upper abdomen without and with intravenous Dotarem contrast. COMPARISON: MR of abdomen on January 20, 2019. CT of abdomen/pelvis on October 15, 2020 CT of abdomen/pelvis on December 29, 2018. FINDINGS: Motion degrades many sequences. LIVER: No hepatic signal abnormality. No focal hepatic lesions. BILIARY: No ductal dilatation or filling defect. PANCREAS: No mass or ductal dilatation. SPLEEN: No splenomegaly. ADRENALS: No left adrenal nodule. Known right adrenal nodule measures 3.5 x 2.6 x 3.1 cm (9:51, 5:35); comparison of the size with the previous MR study is limited due to motion in many sequences at that time. This right adrenal nodule shows drop of signal on the ajt-nh-fckul compared to the in-phase sequence, same as described in previous MRI. KIDNEYS: No hydronephrosis or mass in the imaged portion of the kidneys. PERITONEUM / RETROPERITONEUM: No upper abdominal free fluid. LYMPH NODES: No upper abdominal lymphadenopathy. VESSELS: Unremarkable. BONES AND SOFT TISSUES: Unremarkable. Procedure Note Juan Antonio Echeverria MD - 12/24/2020 MRI ABDOMEN WITH AND WITHOUT CONTRAST TECHNIQUE: MR of the upper abdomen without and with intravenous Dotaremcontrast. COMPARISON: MR of abdomen on January 20, 2019. CT of abdomen/pelvis onOctober 15, 2020 CT of abdomen/pelvis on December 29, 2018. FINDINGS: Motion degrades many sequences. LIVER: No hepatic signal abnormality. No focal hepatic lesions. BILIARY: No ductal dilatation or filling defect. PANCREAS: No mass or ductal dilatation. SPLEEN: No splenomegaly. ADRENALS: No left adrenal nodule. Known right adrenal nodule measures 3.5x 2.6 x 3.1 cm (9:51, 5:35); comparison of the size with the previous MRstudy is limited due to motion in many sequences at that time. This rightadrenal nodule shows drop of signal on the mdh-es-cugjg compared to thein-phase sequence, same as described in previous MRI. KIDNEYS: No hydronephrosis or mass in the imaged portion of the kidneys. PERITONEUM / RETROPERITONEUM: No upper abdominal free fluid. LYMPH NODES: No upper abdominal lymphadenopathy. VESSELS: Unremarkable. BONES AND SOFT TISSUES: Unremarkable. IMPRESSION: Known right adrenal nodule. Based on the CT images, mild interval increasein size from 2019 studies, but signal characteristics compatible withbenign adenoma. Anabelle Santiago MD IM MR ABDOMEN Final Resul t documented in this encounter Visit Diagnoses Diagnosis Other specified disorders of kidney and ureter- Primary Other specified disorders of kidney and ureter documented in this encounter Care Teams Siebel Architect Relationship Specialty Start Date End Date Anabelle Santiago MD [email or web address] PCP - General Family Medicine 04/03/17 10/27/23 Anabelle Santiago MD [address] [place] [address] PCP - General Family Medicine 10/28/23 Anabelle Santiago MD Historical LMR Provider 03/09/17 Toño Lopez MD [address] [place] [address] [email or web address] Historical LMR Provider 03/09/17 05/27/21 Mita Faustin MD [address] [place] [address] [email or web address] Historical LMR Provider 03/09/17 05/27/21 Tommy Enriquez MD, MS [address] [place] [address] [email or web address] Historical LMR Provider 03/09/17 05/27/21 Carmelo Middleton MD [address] [place] [address] [email or web address] Historical LMR Provider 03/09/17 05/27/21 Austin Pyle MD [address] [place] [address] Historical LMR Provider 03/09/17 05/27/21 Jeronimo Wood CNP 15 [facility], [address] [place] [address] [email or web address] Historical LMR Provider 03/09/17 05/27/21 Leonel Rivera MD [address] [place] [address] [email or web address] Sports Medicine 09/29/24 documented as of this encounter Additional Source Comments The information contained in this document represents components of the legal health record. It is not the complete legal health record.[facility]
--- OUTSIDE RECORDS SUMMARY | 2025-02-17 13:17 | XMS_ITS | Encounter Summary ---
Author Organization [facility] Address [address] [place] [address] Phone Care Team Providers Care Paleology Teacher Name Role Phone Anabelle Santiago MD Unavailable [phone] Toño Lopez MD Unavailable Mita Faustin MD Unavailable [phone] Tommy Enriquez MD, MS Unavailable +[phone] Carmelo Middleton MD Unavailable + [phone] Austin Pyle MD Unavailable [phone] Jeronimo Wood CNP Unavailable [phone] Anabelle Santiago MD Primary Care Provider [phone] Anabelle Santiago MD Unavailable [phone] Anabelle Santiago MD Primary Care Provider [phone] Leonel Rivera MD Unavailable [phone] Reason for Referral * Physical Therapy (Routine) - Closed Specialty Diagnoses / Procedures Referred By Conthali t Referred To Contact Physical Therapy Diagnoses Encounter for rehabilitation back pain Procedures physical therapy Anabelle Santiago MD Phone: tel: fax: mailto:[email or web address] [address] [address] Phone: tel: Referral ID Status Reason Start Date Expiration Date Visits Re quested Visits Authorized [id number] Closed 08/21/2017 08/21/2018 20 20 Encounter Details Date Type Department Care Team (Late st Contact Info) Description 06/27/2017 Transcribe Orders [facility] [address] [place] [address] Anabelle Santiago MD [address] [place] [address] [email or web address] Encounter for rehabilitation (Primary Dx) Social History Tobacco Use Types Packs/Day Years Used Date Smoking Tobacco: Light Smoker Cigarettes Smokeless Tobacco: Never Alcohol Use Standard [...] as of this encounter Plan of Treatment Scheduled Referrals Name Type Priority Associated Diagnoses Orde r Schedule Ambulatory referral to [facility] Physical Therapy Outpatient Referral Routine Encounter for rehabilitation Ordered: 06/27/2017 documented as of this encounter Visit Diagnoses Diagnosis Encounter for rehabilitation- Primary documented in this encounter Additional Health Concerns Infection Onset Date Last Indicated Resolved Time CoV-Risk 05/24/2020 05/25/2020 06/03/2020 1:24 AM EST CoV-Risk 07/06/2020 07/06/2020 07/16/2020 1:23 AM EST documented as of this encounter Care Teams Paleology Teacher Relationship Specialty Start Date End Date Anabelle Santiago MD PCP - General Family Medicine 04/03/17 10/27/23 Anabelle Santiago MD [address] [place] [address] PCP - General Family Medicine 10/28/23 Anabelle Santiago MD Historical LMR Provider 03/09/17 Toño Lopez MD [address] [place] [address] Historical LMR Provider 03/09/17 05/27/21 Mita Faustin MD [address] [place] [address] Historical LMR Provider 03/09/17 05/27/21 Tommy Enriquez MD, MS [address] [place] [address] [email or web address] Historical LMR Provider 03/09/17 05/27/21 Carmelo Middleton MD [address] [place] [address] [email or web address] Historical LMR Provider 03/09/17 05/27/21 Austin Pyle MD [address] [place] [address] Historical LMR Provider 03/09/17 05/27/21 Jeronimo Wood, PT SITTER [address] [place] [address] [email or web address] Historical LMR Provider 03/09/17 05/27/21 Anabelle Santiago MD [address] [place] [address] [email or web address] Insurance Assigned Provider 08/17/17 06/21/18 Leonel Rivera MD [address] [place] [address] [email or web address] Sports Medicine 09/29/24 documented as of this encounter Additional Source Comments The information contained in this document represents components of the legal health record. It is not the complete legal health record.[facility]
--- OUTSIDE RECORDS SUMMARY | 2025-02-17 13:17 | XMS_ITS | Encounter Summary ---
Author Organization [facility] Address [address] [place] [address] Phone Care Team Providers Care Cap Cutter Name Role Phone Anabelle Santiago MD Unavailable [phone] Toño Lopez MD Unavailable Mita Faustin MD Unavailable [phone] Tommy Enriquez MD, MS Unavailable +[phone] Carmelo Middleton MD Unavailable + [phone] Austin Pyle MD Unavailable [phone] Jeronimo Wood CNP Unavailable [phone] Anabelle Santiago MD Primary Care Provider [phone] Anabelle Santiago MD Unavailable [phone] Anabelle Santiago MD Primary Care Provider [phone] Leonel Rivera MD Unavailable [phone] Reason for Referral * Outpatient Procedure - Closed Specialty Diagnoses / Procedures Referred By Contac t Referred To Contact Diagnoses Edema, unspecified type Procedures Adult Echo TTE Anabelle Santiago MD Phone: tel: fax: mailto: Referral ID Status Reason Start Date Expiration Date Visits Re quested Visits Authorized [id number] Closed 01/27/2018 01/27/2019 1 1 Encounter Details Date Type Department Care Team (Late st Contact Info) Description 01/28/2018 Ancillary Orders Virtual Department [address] [place] [address] Anabelle Santiago MD [address] [place] [address] [email or web address] Edema, unspecified type Social History Tobacco Use Types [...] documented as of this encounter Results * TTE COMPREHENSIVE W/ LVO CONTRAST (02/07/2018 12:29 PM EDT) Body Surface Area 2.3 m2 Height 158 m Weight 145 kg Systolic BP 138 mmHg Diastolic BP 75 mmHg Left Atrium Dimension Anterior-Posterior 35 15 - 40 mm Aortic Valve Peak Velocity 1,540.00 mm/s Aortic Valve Peak Gradient 9.00 mmHg Aortic Sinus Diameter 23 mm Ascending Aorta Diameter 21 mm Inferior Vena Cava Diameter 23 0.0 - 21 mm Interventricular Septum Thickness 10 mm Left Ventricle Internal Diameter End Diastole 54 37 - 52 mm Left Ventricle Internal Diameter End Systole 31 22 - 35 mm Left Ventricular Outflow Tract Diameter 17.00 mm LVOT VTI REST 205.00 mm Left Ventricular Outflow Tract Velocity 998.00 mm/s Left Ventricular Outflow Tract Gradient at Rest 4.00 mmHg Left Ventricular Posterior Wall Thickness 7 mm Ejection Fraction 73 50 - 75 Percent Mitral Valve Deceleration Time 256.00 ms Mitral Valve A Wave Speed 1,030.00 mm/s Mitral Valve E Wave Speed 781.00 mm/s Right Ventricle Basal Diameter 28.20 25 - 41 mm Raw LV EF% 67 % Aortic Valve Sinus Index 1 10 20 - 32 mm Ascending Aorta Diameter 9 mm Aortic Sinus Index 10 mm Ascending Aorta Index 9 mm Anatomical Region Laterality Modality Heart Ultrasound Narrative 02/07/2018 7:23 PM EDT The image quality was fair (3). LVO contrast used during this echo procedure Left ventricular systolic function is normal. There are no segmental left ventricular wall motion abnormalities noted. The estimated ejection fraction is 73% (Normal 50-75%). There is trace mitral regurgitation No prior studies for comparison. Left Ventricle The left ventricular cavity size and wall thickness are normal. Left ventricular systolic function is normal. There are no segmental left ventricular wall motion abnormalities noted. The estimated ejection fraction is 73% (Normal 50-75%). The left ventricular ejection fraction was measured by the single dimension method. Left ventricular diastolic function appears within normal limits for age. There is no evidence of left ventricular thrombus. Right Ventricle The right ventricular size is normal. No evidence of right ventricular hypertrophy. The right ventricular systolic function is normal. Left Atrium The left atrium is normal in size. LA volume index is 1904 ml/m2. The left atrial anterior-posterior dimension measures 35 mm (normal 15-40 mm). The pulmonary venous flow profiles are normal. Right Atrium The right atrium is normal in size. The IVC measures 23 mm (normal <=21 mm). The IVC demonstrates normal collapse with inspiration which is consistent with normal RA pressure. Mitral Valve The mitral valve appears normal. There is no evidence of mitral stenosis. E/A ratio is 0.8. E/E' avg is 10.3. Lat E' velocity is 6.31 cm/s. Med E' velocity is 8.8 cm/s. There is trace mitral regurgitation detected by spectral and color Doppler. Tricuspid Valve The tricuspid valve appears normal. There is no evidence of tricuspid stenosis. There is evidence of trace tricuspid regurgitation by color and spectral Doppler. There is an insufficient tricuspid regurgitation Doppler profile to calculate a right ventricular systolic pressure. Aortic Valve The aortic valve appears normal. The aortic valve is tricuspid. The leaflets appear normal in thickness. There is no evidence of valvular aortic stenosis. The peak aortic valve gradient is 9 mmHg. There is no evidence of aortic regurgitation by color and spectral Doppler. Pulmonic Valve Pulmonary valve was not well visualized. The pulmonary valve appears normal. There is no evidence of pulmonic stenosis. There is no evidence of pulmonary regurgitation by color and spectral Doppler. Pericardium There is no evidence of pericardial effusion. Interatrial Septum The interatrial septum appears normal. General Findings The image quality was fair (3). Poor subcostal window. Color flow Doppler and Spectral Doppler used in the evaluation. LVO contrast used during this echo procedure. For more information regarding the medications administered, please refer to the Epic MAR. No adverse reaction to medication was noted. Comparison Findings No prior studies for comparison. us Anabelle Santiago MD CV ECHO ORDERABLES Final Re sult documented in this encounter Visit Diagnoses Diagnosis Edema, unspecified type Edema, unspecified type documented in this encounter Additional Health Concerns Infection Onset Date Last Indicated Resolved Time CoV-Risk 05/24/2020 05/25/2020 06/03/2020 1:24 AM EST CoV-Risk 07/06/2020 07/06/2020 07/16/2020 1:23 AM EST documented as of this encounter Care Teams Cap Cutter Relationship Specialty Start Date End Date Anabelle Santiago MD PCP - General Family Medicine 04/03/17 10/27/23 Anabelle Santiago MD [address] [place] [address] PCP - General Family Medicine 10/28/23 Anabelle Santiago MD Historical LMR Provider 03/09/17 Toño Lopez MD [address] [place] [address] [email or web address] Historical LMR Provider 03/09/17 05/27/21 Mita Faustin MD [address] [place] [address], [place] [address] [email or web address] Historical LMR Provider 03/09/17 05/27/21 Tommy Enriquez MD, MS [address] [place] [address] [email or web address] Historical LMR Provider 03/09/17 05/27/21 Carmelo Middleton MD [address] [place] [address] [email or web address] Historical LMR Provider 03/09/17 05/27/21 Austin Pyle MD [address] [place] [address], [address] [address] [email or web address] Historical LMR Provider 03/09/17 05/27/21 Jeronimo Wood CNP [address] [place] [address] [email or web address] Historical LMR Provider 03/09/17 05/27/21 Anabelle Santiago MD [address] [place] [address] [email or web address] Insurance Assigned Provider 08/17/17 06/21/18 Leonel Rivera MD [address] [place] [address] [email or web address] Sports Medicine 09/29/24 documented as of this encounter Additional Source Comments The information contained in this document represents components of the legal health record. It is not the complete legal health record.[facility]
--- OUTSIDE RECORDS SUMMARY | 2025-02-17 13:17 | XMS_ITS | Encounter Summary ---
Author Organization [facility] Address [address] [place] [address] Phone Care Team Providers Care Park Warden Name Role Phone Anabelle Santiago MD Unavailable [phone] Toño Lopez MD Unavailable Mita Faustin MD Unavailable [phone] Tommy Enriquez MD, MS Unavailable +[phone] Carmelo Middleton MD Unavailable + [phone] Austin Pyle MD Unavailable [phone] Jeronimo Wood CNP Unavailable +[phone] Anabelle Santiago MD Primary Care Provider [phone] Anabelle Santiago MD Primary Care Provider [phone] Leonel Rivera MD Unavailable [phone] Encounter Details Date Type Department Care Team (Late st Contact Info) Description 01/02/2019 Procedure Pass [facility], [facility] - [address] [place] [address] Social History Tobacco Use Types Packs/Day Years [...] documented as of this encounter Care Teams Park Warden Relationship Specialty Start Date End Date Anabelle Santiago MD PCP - General Family Medicine 04/03/17 10/27/23 Anabelle Santiago MD [address] [place] [address] PCP - General Family Medicine 10/28/23 Anabelle Santiago MD Historical LMR Provider 03/09/17 Toño Lopez MD [address] [place] [address] Historical LMR Provider 03/09/17 05/27/21 Mita Faustin MD [address] [place] [address] Historical LMR Provider 03/09/17 05/27/21 Tommy Enriquez MD, MS [address] [place] [address] [email or web address] Historical LMR Provider 03/09/17 05/27/21 Carmelo Middleton MD [address] [place] [address] [email or web address] Historical LMR Provider 03/09/17 05/27/21 Austin Pyle MD [address] [facility], [address] [place] [address] [email or web address] Historical LMR Provider 03/09/17 05/27/21 Jeronimo Wood CNP [address] [facility] 2nd [place] [address] [email or web address] Historical LMR Provider 03/09/17 05/27/21 Leonel Rivera MD [address] [place] [address] [email or web address] Sports Medicine 09/29/24 documented as of this encounter Additional Source Comments The information contained in this document represents components of the legal health record. It is not the complete legal health record.[facility]
--- OUTSIDE RECORDS SUMMARY | 2025-02-17 13:17 | XMS_ITS | Encounter Summary ---
Author Organization [facility] Address [address] [place] [address] Phone Care Team Providers Care Gas Turbine Powerplant Mechanic Helper Name Role Phone Anabelle Santiago MD Unavailable [phone] Toño Lopez MD Unavailable Mita Faustin MD Unavailable [phone] Tommy Enriquez MD, MS Unavailable +[phone] Carmelo Middleton MD Unavailable + [phone] Austin Pyle MD Unavailable [phone] Jeronimo Wood CNP Unavailable [phone] Anabelle Santiago MD Primary Care Provider [phone] Anabelle Santiago MD Unavailable [phone] Anabelle Santiago MD Primary Care Provider [phone] Leonel Rivera MD Unavailable [phone] Encounter Details Date Type Department Care Team (Late st Contact Info) Description 10/28/2017 Ancillary Orders Virtual Department 30 [place] [address] Isiah Muro MD [address] [place], [place] [id number] [email or web address] Localized swelling, mass, or lump of left lower extremity Social History Tobacco Use Types Packs/Day Years [...] documented as of this encounter Results * US Lower Extremity Veins Duplex (Left) (10/28/2017 2:42 PM EDT) Anatomical Region Laterality Modality Hip Left, Thigh Left, Knee L eft, Leg Left, Ankle Left, Foot Left Ultrasound 10/28/2017 2:44 PM EDT Impressions 10/28/2017 2:45 PM EDT No evidence of deep venous thrombosis at or above the level of the knee. POS [id number] Narrative 10/28/2017 2:45 PM EDT Color duplex Doppler evaluation of the left thigh and upper calf and the posterior tibial vein in the lower calf was performed, with comparison made prior study of 01/11/2015. The deep venous tree was widely patent, completely compressible, and displayed normal color and spectral Doppler venous flow characteristics with augmentation of flow elicited upon calf compression. No popliteal cyst was demonstrated. Procedure Note Eleanor Mckeon MD - 10/28/2017 Color duplex Doppler evaluation of the left thigh and upper calf and theposterior tibial vein in the lower calf was performed, with comparisonmade prior study of 01/11/2015. The deep venous tree was widely patent,completely compressible, and displayed normal color and spectral Dopplervenous flow characteristics with augmentation of flow elicited upon calfcompression. No popliteal cyst was demonstrated. IMPRESSION: No evidence of deep venous thrombosis at or above the level of the knee. POS [id number] Isiah Muro MD CV US VASCULAR Final Resul t documented in this encounter Visit Diagnoses Diagnosis Localized swelling, mass, or lump of left lower extremity Localized swelling, mass, or lump of left lower extremity documented in this encounter Additional Health Concerns Infection Onset Date Last Indicated Resolved Time CoV-Risk 05/24/2020 05/25/2020 06/03/2020 1:24 AM EST CoV-Risk 07/06/2020 07/06/2020 07/16/2020 1:23 AM EST documented as of this encounter Care Teams Gas Turbine Powerplant Mechanic Helper Relationship Specialty Start Date End Date Anabelle Santiago MD PCP - General Family Medicine 04/03/17 10/27/23 Anabelle Santiago MD [address] [place] [address] PCP - General Family Medicine 10/28/23 Anabelle Santiago MD Historical LMR Provider 03/09/17 Toño Lopez MD [address] [place] [address] Historical LMR Provider 03/09/17 05/27/21 Mita Faustin MD [address] [place] [address] Historical LMR Provider 03/09/17 05/27/21 Tommy Enriquez MD, MS [address] [place] [address] Historical LMR Provider 03/09/17 05/27/21 Carmelo Middleton MD [address] [place] [address] [email or web address] Historical LMR Provider 03/09/17 05/27/21 Austin Pyle MD [address] [facility], [address] [place] [address] [email or web address] Historical LMR Provider 03/09/17 05/27/21 Jeronimo Wood CNP [address] [facility], 2nd [place] [address] [email or web address] Historical LMR Provider 03/09/17 05/27/21 Anabelle Santiago MD [address] [place] [address] [email or web address] Insurance Assigned Provider 08/17/17 06/21/18 Leonel Rivera MD [address] [place] [address] [email or web address] Medicine 09/29/24 documented as of this encounter Additional Source Comments The information contained in this document represents components of the legal health record. It is not the complete legal health record.[facility]
--- OUTSIDE RECORDS SUMMARY | 2025-02-17 13:17 | XMS_ITS | Encounter Summary ---
Author Organization [facility] Address [address] [place] [address] Phone Care Team Providers Care Trace Clerk Name Role Phone Anabelle Santiago MD Unavailable [phone] Toño Lopez MD Unavailable Mita Faustin MD Unavailable [phone] Tommy Enriquez MD, MS Unavailable [phone] Carmelo Middleton MD Unavailable +[phone] Austin Pyle MD Unavailable [phone] Jeronimo Wood CNP Unavailable [phone] Anabelle Santiago MD Primary Care Provider [phone] Anabelle Santiago MD Primary Care Provider [phone] Leonel Rivera MD Unavailable [phone] Reason for Referral * MRI/CAT Scan - Closed Specialty Diagnoses / Procedures Referred By Contac t Referred To Contact Radiology Diagnoses Adrenal mass Procedures MRI Abdomen Brigitte Leonard PA Phone: tel: fax: Referral ID Status Reason Start Date Expiration Date Visits Re quested Visits Authorized [id number] Closed 01/02/2019 01/02/2020 1 1 Encounter Details Date Type Department Care Team (Latest Contact Info) Description 01/02/2019 Transcribe Orders Virtual Department 30 [place] [address] Brigitte Leonard PA [address] [place] [address] Adrenal mass (Primary Dx) Social History Tobacco Use Types [...] of this encounter Results * MRI ABDOMEN WITHOUT CONTRAST (01/20/2019 9:52 AM EDT) Anatomical Region Laterality Modality Abdomen Magnetic Resonan ce 01/20/2019 10:1 8 AM EDT Impressions 01/20/2019 10:31 AM EDT 1. The right adrenal nodule is consistent with an adenoma. 2. Findings consistent with mild fatty infiltration of the liver. POS [id number] Narrative 01/20/2019 10:31 AM EDT HISTORY: Right-sided pain, right adrenal mass on CT, abnormal previous study. Evaluate right adrenal mass. COMPARISON: CT abdomen 12/29/2018. TECHNIQUE: Nonenhanced in and out of phase axial and coronal T1 sequences performed as well as non-enhanced axial T2, DWI and coronal T2 sequences performed FINDINGS: Adrenals: The right adrenal nodule is intermediate signal on non-enhanced T1 and T2 sequences. There is moderate signal dropout within the right adrenal nodule from the in phase T1 sequences to the out phase T1 sequences. : No evidence of left adrenal abnormalities. Tiny peripheral cortical T2 hyperintense lesion within the interpolar region of the left kidney laterally very likely representing a cyst. Liver/spleen: Mild loss of T2 signal within the liver from in phase to out of phase T1 sequences. Liver margins are smooth. Liver normal in size. No evidence of splenic abnormalities. Pancreas/biliary: No evidence of significant abnormalities of the pancreas. No evidence of biliary ductal dilatation. GI: No marked bowel distention. CARDIOVASCULAR: Abdominal aorta normal in caliber. Procedure Note Patrick Roche MD - 01/20/2019 HISTORY: Right-sided pain, right adrenal mass on CT, abnormal previousstudy. Evaluate right adrenal mass. COMPARISON: CT abdomen 12/29/2018. TECHNIQUE: Nonenhanced in and out of phase axial and coronal T1 sequencesperformed as well as non-enhanced axial T2, DWI and coronal T2 sequencesperformed FINDINGS: Adrenals: The right adrenal nodule is intermediate signal on non-enhancedT1 and T2 sequences. There is moderate signal dropout within the rightadrenal nodule from the in phase T1 sequences to the out phase L0cerypxxse. : No evidence of left adrenal abnormalities. Tiny peripheral corticalT2 hyperintense lesion within the interpolar region of the left kidneylaterally very likely representing a cyst. Liver/spleen: Mild loss of T2 signal within the liver from in phase to outof phase T1 sequences. Liver margins are smooth. Liver normal in size.No evidence of splenic abnormalities. Pancreas/biliary: No evidence of significant abnormalities of thepancreas. No evidence of biliary ductal dilatation. GI: No marked bowel distention. CARDIOVASCULAR: Abdominal aorta normal in caliber. IMPRESSION: 1. The right adrenal nodule is consistent with an adenoma. 2. Findings consistent with mild fatty infiltration of the liver. POS [id number] Brigitte STEWART IMG MR ABDOMEN Final Resul t documented in this encounter Visit Diagnoses Diagnosis Adrenal mass- Primary Unspecified disorder of adrenal glands Adrenal mass Unspecified disorder of adrenal glands documented in this encounter Additional Health Concerns Infection Onset Date Last Indicated Resolved Time CoV-Risk 05/24/2020 05/25/2020 06/03/2020 1:24 AM EST CoV-Risk 07/06/2020 07/06/2020 07/16/2020 1:23 AM EST documented as of this encounter Care Teams Trace Clerk Relationship Specialty Start Date End Date Anabelle Santiago MD [email or web address] PCP - General Family Medicine 04/03/17 10/27/23 Anabelle Santiago MD [address] [place] [address] PCP - General Family Medicine 10/28/23 Anabelle Santiago MD Historical LMR Provider 03/09/17 Toño Lopez MD [address] [place] [address] [email or web address] Historical LMR Provider 03/09/17 05/27/21 Mita Faustin MD [address] [place] [address] [email or web address] Historical LMR Provider 03/09/17 05/27/21 Tommy Enriquez MD, MS [address] [place] [address] [email or web address] Historical LMR Provider 03/09/17 05/27/21 Carmelo Middleton MD [address] [place] [address] [email or web address] Historical LMR Provider 03/09/17 05/27/21 Austin Pyle MD [address] [place] [address] [email or web address] Historical LMR Provider 03/09/17 05/27/21 Jeronimo Wood CNP [address] [facility], [address] [place] [address] anne Historical LMR Provider 03/09/17 05/27/21 Leonel Rivera MD [address] [place] [address] [email or web address] Medicine 09/29/24 documented as of this encounter Additional Source Comments The information contained in this document represents components of the legal health record. It is not the complete legal health record.[facility]
--- OUTSIDE RECORDS SUMMARY | 2025-02-17 13:17 | XMS_ITS | Encounter Summary ---
Author Organization [facility] Address [address] [place] [address] Phone Care Team Providers Care Stone Setter Name Role Phone Anabelle Santiago MD Unavailable [phone] Toño Lopez MD Unavailable Mita Faustin MD Unavailable [phone] Tommy Enriquez MD, MS Unavailable +[phone] Carmelo Middleton MD Unavailable + [phone] Austin Pyle MD Unavailable [phone] Jeronimo Wood CNP Unavailable [phone] Anabelle Santiago MD Primary Care Provider [phone] Anabelle Santiago MD Unavailable [phone] Anabelle Santiago MD Primary Care Provider [phone] Leonel Rivera MD Unavailable [phone] Encounter Details Date Type Department Care Team (Late st Contact Info) Description 10/28/2017 Ancillary Orders [facility], X-Ray - [facility] [address] [place] [address] Suha Santiago PA [address] [place] [address] [email or web address] Left knee pain, unspecified chronicity Social History Tobacco Use Types Packs/Day Years [...] documented as of this encounter Results * XR KNEE 4 OR MORE VIEWS (LEFT) (10/28/2017 1:37 PM EDT) Anatomical Region Laterality Modality Knee Left Radiographic Yenifer ging 10/28/2017 2:14 PM EDT Impressions 10/28/2017 2:16 PM EDT Knee effusion again evident. Overall changes similar to that seen previously with minor degenerative changes evident. Internal derangement of the knee is not excluded. No acute fracture is noted. S/S: Chronic left knee pain, knee effusion POS - [id number] Narrative 10/28/2017 2:16 PM EDT COMPARISON: Left knee x-ray August 18, 2017 FINDINGS: 7 views of the left knee are obtained. There is a left knee effusion again evident. Minor medial compartment spurring and patellofemoral femoral spurring is present. No joint space narrowing is seen. Possible minor medial subluxation of the femur relative to the tibia evident. Procedure Note Serafin Castillo MD - 10/28/2017 COMPARISON: Left knee x-ray August 18, 2017 FINDINGS: 7 views of the left knee are obtained. There is a left knee effusion again evident. Minor medial compartment spurring and patellofemoral femoral spurring ispresent. No joint space narrowing is seen. Possible minor medial subluxation of the femur relative to the tibiaevident. IMPRESSION: Knee effusion again evident. Overall changes similar to that seenpreviously with minor degenerative changes evident. Internal derangementof the knee is not excluded. No acute fracture is noted. S/S: Chronic left knee pain, knee effusion POS - [id number] us Suha Santiago PA IMG XR LOWER EXTREMITY Courtney l Result documented in this encounter Visit Diagnoses Diagnosis Left knee pain, unspecified chronicity Left knee pain, unspecified chronicity documented in this encounter Additional Health Concerns Infection Onset Date Last Indicated Resolved Time CoV-Risk 05/24/2020 05/25/2020 06/03/2020 1:24 AM EST CoV-Risk 07/06/2020 07/06/2020 07/16/2020 1:23 AM EST documented as of this encounter Care Teams Stone Setter Relationship Specialty Start Date End Date Anabelle Santiago MD PCP - General Family Medicine 04/03/17 10/27/23 Anabelle Santiago MD [address] [place] [address] PCP - General Family Medicine 10/28/23 Anabelle Santiago MD Historical LMR Provider 03/09/17 Toño Lopez MD [address] [place] [address] [email or web address] Historical LMR Provider 03/09/17 05/27/21 Mita Faustin MD [address] [place] [address] [email or web address] Historical LMR Provider 03/09/17 05/27/21 Tommy Enriquez MD, MS [address] [place] [address] [email or web address] Historical LMR Provider 03/09/17 05/27/21 Carmelo Middleton MD [address] [place] [address] [email or web address] Historical LMR Provider 03/09/17 05/27/21 Austin Pyle MD [address] [facility], [address] [place] [address] [email or web address] Historical LMR Provider 03/09/17 05/27/21 Jeronimo Wood CNP [address] [address] [email or web address] Historical LMR Provider 03/09/17 05/27/21 Anabelle Santiago MD [address] [place] [address] [email or web address] Insurance Assigned Provider 08/17/17 06/21/18 Leonel Rivera MD [address] [place] [address] [email or web address] Sports Medicine 09/29/24 documented as of this encounter Additional Source Comments The information contained in this document represents components of the legal health record. It is not the complete legal health record.[facility]
--- OUTSIDE RECORDS SUMMARY | 2025-02-17 13:17 | XMS_ITS | Encounter Summary ---
Author Organization [facility] Address [address] [facility] [address] [place] [address] Phone Care Team Providers Care Building Insulation Supervisor Name Role Phone Anabelle Santiago MD Unavailable [phone] Anabelle Santiago MD Primary Care Provider [phone] Leonel Rivera MD Unavailable [phone] Reason for Visit * Reason Comments Medication Refill Encounter Details Date Type Department Care Team (Late st Contact Info) Description 09/15/2024 Refill [facility] [address] [place] [address] [address], [address] [place] [address] Tristin Shah MD [address] [facility], [address] [place] [address] [email or web address] Medication Refill Social History Tobacco Use Types Packs/Day Years [...] with a working camera? Not on file 05 / Intimate Partner Violence Answer Date R ecorded [...] as of this encounter Visit Diagnoses Diagnosis Moderate persistent asthma without complication documented in this encounter Care Teams Building Insulation Supervisor Relationship Specialty Start Date End Date Anabelle Santiago MD [address] [place] [address] PCP - General Family Medicine 10/28/23 Anabelle Santiago MD Historical LMR Provider 03/09/17 Leonel Rivera MD [address] [place] [address] [email or web address] Sports Medicine 09/29/24 documented as of this encounter Additional Source Comments The information contained in this document represents components of the legal health record. It is not the complete legal health record.[facility]
--- OUTSIDE RECORDS SUMMARY | 2025-02-17 13:17 | XMS_ITS | Encounter Summary ---
Author Organization [facility] Address [address] [place] [address] Phone Care Team Providers Care Publicity Writer Name Role Phone Anabelle Santiago MD Unavailable [phone] Anabelle Santiago MD Primary Care Provider [phone] Leonel Rivera MD Unavailable [phone] Encounter Details Date Type Department Care Team (Late st Contact Info) Description 09/23/2024 Procedure Pass OR Admitting Dept - Virtual Department [address] [place] [address] Social History Tobacco Use Types Packs/Day Years [...] on filedocumented in this encounter Care Teams Publicity Writer Relationship Specialty Start Date End Date Anabelle Santiago MD [address] [place] [address] PCP - General Family Medicine 10/28/23 Anabelle Santiago MD Historical LMR Provider 03/09/17 Leonel Rivera MD [address] [place] [address] [email or web address] Sports Medicine 09/29/24 documented as of this encounter Additional Source Comments The information contained in this document represents components of the legal health record. It is not the complete legal health record.[facility]
--- OUTSIDE RECORDS SUMMARY | 2025-02-17 13:17 | XMS_ITS | Encounter Summary ---
Author Organization [facility] Address [address] [place] [address] Phone Care Team Providers Care Grocery Supervisor Name Role Phone Anabelle Santiago MD Unavailable [phone] Toño Lopez MD Unavailable Mita Faustin MD Unavailable [phone] Tommy Enriquez MD, MS Unavailable [phone] Carmelo Middleton MD Unavailable [phone]- [phone] Austin Pyle MD Unavailable [phone] Jeronimo Wood CNP Unavailable [phone] Anabelle Santiago MD Primary Care Provider [phone] Anabelle Santiago MD Primary Care Provider [phone] Leonel Rivera MD Unavailable [phone] Reason for Referral * MRI/CAT Scan - Closed Specialty Diagnoses / Procedures Referred By Forrest t Referred To Contact Radiology Diagnoses Pleurisy Procedures CT Chest Tristin Shah MD Phone: tel: fax: [email or web address] Referral ID Status Reason Start Date Expiration Date Visits Re quested Visits Authorized [id number] Closed 08/27/2018 08/27/2019 1 1 Encounter Details Date Type Department Care Team (Latest Contact Info) Description 08/27/2018 Transcribe Orders Virtual Department [address] [place] [address] Tristin Shah MD [address] [place] [address], [address] [place] [address] [email or web address] Pleurisy (Primary Dx) Social History Tobacco Use Types [...] as of this encounter Results * CT CHEST WITHOUT CONTRAST (09/05/2018 12:15 PM EDT) Anatomical Region Laterality Modality Chest Computed Tomogra phy 09/05/2018 12:2 5 PM EDT Impressions 09/05/2018 12:31 PM EDT Patchy areas of residual linear density evident at sites of prior infiltration consistent with volume loss and/or scarring. No definitive acute infiltration or significant mass lesion is seen. Right adrenal nodule consistent with an adrenal adenoma. This is unchanged. TOTAL CTDIvol: 18.00 mGy S/S: Follow-up bilateral pulmonary infiltrates/densities. . POS - [id number] Narrative 09/05/2018 12:31 PM EDT COMPARISON: CT chest 07/04/2018 TECHNIQUE: Unenhanced imaging obtained from lung apex to base. Sagittal and coronal reformats generated. Automated exposure control utilized. FINDINGS: The thyroid gland is unremarkable. No axillary pathology is seen. There are linear areas of density evident at sites of prior infiltration involving the right upper lobe, right middle lobe, lingula, and right lower lobe. These areas represent findings of probable atelectasis/scarring without acute infiltration or mass lesion of concern suspected. No pleural fluid is seen. No mediastinal or hilar lymphadenopathy is noted as best as can be determined on an unenhanced scan. There is a nodular mass related of the right adrenal gland which is likely an adrenal adenoma. This is unchanged. No left adrenal mass is seen. There are mild degenerative changes in the thoracic spine. Procedure Note Serafin Castillo MD - 09/05/2018 COMPARISON: CT chest 07/04/2018 TECHNIQUE: Unenhanced imaging obtained from lung apex to base. [place] coronal reformats generated. Automated exposure control utilized. FINDINGS: The thyroid gland is unremarkable. No axillary pathology is seen. There are linear areas of density evident at sites of prior infiltrationinvolving the right upper lobe, right middle lobe, lingula, and rightlower lobe. These areas represent findings of probableatelectasis/scarring without acute infiltration or mass lesion of concernsuspected. No pleural fluid is seen. No mediastinal or hilar lymphadenopathy is noted as best as can bedetermined on an unenhanced scan. There is a nodular mass related of the right adrenal gland which is likelyan adrenal adenoma. This is unchanged. No left adrenal mass is seen. There are mild degenerative changes in the thoracic spine. IMPRESSION: Patchy areas of residual linear density evident at sites of priorinfiltration consistent with volume loss and/or scarring. No definitiveacute infiltration or significant mass lesion is seen. Right adrenal nodule consistent with an adrenal adenoma. This isunchanged. TOTAL CTDIvol: 18.00 mGy S/S: Follow-up bilateral pulmonary infiltrates/densities. . POS - [id number] Tristin Shah MD IMG CT CHEST Final Result documented in this encounter Visit Diagnoses Diagnosis Pleurisy- Primary Pleurisy without mention of effusion or current tuberculosis Pleurisy Pleurisy without mention of effusion or current tuberculosis documented in this encounter Additional Health Concerns Infection Onset Date Last Indicated Resolved Time CoV-Risk 05/24/2020 05/25/2020 06/03/2020 1:24 AM EST CoV-Risk 07/06/2020 07/06/2020 07/16/2020 1:23 AM EST documented as of this encounter Care Teams Grocery Supervisor Relationship Specialty Start Date End Date Anabelle Santiago MD [email or web address] PCP - General Family Medicine 04/03/17 10/27/23 Anabelle Santiago MD [address] [place] [address] [email or web address] PCP - General Family Medicine 10/28/23 Anabelle Santiago MD [email or web address] Historical LMR Provider 03/09/17 Toño Lopez MD [address] [place] [address] [email or web address] Historical LMR Provider 03/09/17 05/27/21 Mita Faustin MD [address] [place] [address] [email or web address] Historical LMR Provider 03/09/17 05/27/21 Tommy Enriquez MD, MS [address] [place] [address] [email or web address] Historical LMR Provider 03/09/17 05/27/21 Carmelo Middleton MD [address] [place] [address] [email or web address] Historical LMR Provider 03/09/17 05/27/21 Austin Pyle MD [address] [place], [place] [address], [place] [address] Historical LMR Provider 03/09/17 05/27/21 Jeronimo Wood CNP [address] [facility], 2nd [place] [address] [email or web address] Historical LMR Provider 03/09/17 05/27/21 Leonel Rivera MD [address] [place] [address] [email or web address] 09/29/24 documented as of this encounter Additional Source Comments The information contained in this document represents components of the legal health record. It is not the complete legal health record.[facility]
--- OUTSIDE RECORDS SUMMARY | 2025-02-17 13:17 | XMS_ITS | Encounter Summary ---
Author Organization [facility] Address [address] [place] [address] Phone Care Team Providers Care Mold Making Supervisor Name Role Phone Anabelle Santiago MD Unavailable [phone] Anabelle Santiago MD Primary Care Provider [phone] Leonel Rivera MD Unavailable [phone] Encounter Details Date Type Department Care Team (Latest Contact Info) Description 10/09/2024 Transcribe Orders [facility] [address] [address] Jenna Morales, BERT [address] [place] [address] Dysphagia, pharyngoesophageal phase (Primary Dx); Hx of colonic polyps Social History Tobacco Use Types Packs/Day Years [...] documented as of this encounter Results * C-Reactive Protein (10/09/2024 9:01 AM EDT) [facility] C REACTIVE PROTEIN 3.1 0.0 - 4.0 mg/L [facility] Blood 10/09/2024 9:01 AM EDT 10/09/2024 9:04 AM EDT us Jenna Morales NP LAB BLOOD ORDER JORGE LUIS Final Result [facility] [address] [place], [place] [id number] * (ABNORMAL) Comprehensive metabolic panel (10/09/2024 9:01 AM EDT) SODIUM 139 133 - 146 mmol/L [facility] POTASSIUM 3.6 3.3 - 5.1 mmol/L [facility] CHLORIDE 104 96 - 108 mmol/L [facility] CO2 25 21 - 35 mmol/L [facility] BUN 14 6 - 19 mg/dL [facility] CREATININE 0.50 0.5 - 1.5 mg/dL [facility] GLUCOSE 85 70 - 99 mg/dL [facility] ALBUMIN 3.8(L) 3.9 - 4.8 g/dL [facility] TOTAL PROTEIN 6.9 6.5 - 8.0 g/dL [facility] CALCIUM 9.0 8.4 - 10.3 mg/dL [facility] ALKALINE PHOSPHATASE 135(H) 39 - 117 U/L [facility] TOTAL BILIRUBIN 0.3 0.0 - 1.2 mg/dL [facility] AST 38(H) 0 - 37 U/L [facility] ALT 36 0 - 40 U/L [facility] GLOBULIN 3.1 1 - 4.8 g/dL [facility] EGFR 111 >59 mL/min/1.7 3m2 [facility] Comment:Estimated glomerular filtration rate calculated using the CKD-EPI refit equation. ANION GAP 14 10 - 20 mmol/L [facility] Blood 10/09/2024 9:01 AM EDT 10/09/2024 9:04 AM EDT us Jenna Morales NP LAB BLOOD ORDER JORGE LUIS Final Result [address] [address] * (ABNORMAL) CBC (10/09/2024 9:01 AM EDT) WBC 6.54 4.00 - 11.00 K/uL [facility] RBC 4.11 4.00 - 5.20 M/uL [facility] HGB 11.1(L) 12.0 - 16.0 g/dL [facility] HCT 36.0 36.0 - 46.0 % [facility] PLT 234 150 - 450 K/uL [facility] MCV 87.6 80.0 - 100.0 fL [facility] MCH 27.0 27.0 - 31.0 pg [facility] MCHC 30.8(L) 32.0 - 36.0 g/dL [facility] RDW 16.5(H) 11.5 - 14.5 % [facility] MPV 11.6 8.4 - 12.0 fL [facility] NRBC 0.00 0.00 /100 WBCs [facility] ABSOLUTE NRBC 0.00 0.00 K/uL [facility] Blood 10/09/2024 9:01 AM EDT 10/09/2024 9:04 AM EDT us Jenna Morales CONTINUOUS IMPROVEMENT ENGINEER LAB BLOOD ORDER JORGE LUIS Final Result [facility] [address] [place] [address] documented in this encounter Visit Diagnoses Diagnosis Dysphagia, pharyngoesophageal phase- Primary Hx of colonic polyps Personal history of colonic polyps documented in this encounter Care Teams Mold Making Supervisor Relationship Specialty Start Date End Date Anabelle Santiago MD [address] [place] [address] PCP - General Family Medicine 10/28/23 Anabelle Santiago MD Historical LMR Provider 03/09/17 Leonel Rivera MD [address] [place] [address] [email or web address] Medicine 09/29/24 documented as of this encounter Additional Source Comments The information contained in this document represents components of the legal health record. It is not the complete legal health record.[facility]
--- OUTSIDE RECORDS SUMMARY | 2025-02-17 13:17 | XMS_ITS | Encounter Summary ---
Author Organization [facility] Address [address] [place] [address] Phone Care Team Providers Care Margin Trimmer Name Role Phone Anabelle Santiago MD Unavailable [phone] Toño Lopez MD Unavailable Mita Faustin MD Unavailable [phone] Tommy Enriquez MD, MS Unavailable [phone] Carmelo Middleton MD Unavailable [phone] Austin Pyle MD Unavailable [phone] Jeronimo Wood CNP Unavailable [phone] Anabelle Santiago MD Primary Care Provider [phone] Anabelle Santiago MD Primary Care Provider [phone] Leonel Rivera MD Unavailable [phone] Reason for Referral * MRI/CAT Scan - Closed Specialty Diagnoses / Procedures Referred By Conthali t Referred To Contact Radiology Diagnoses Chest pain, unspecified type Procedures CT Angio Chest Tristin Shah MD Phone: tel: fax: [email or web address] Referral ID Status Reason Start Date Expiration Date Visits Re quested Visits Authorized [id number] Closed 04/21/2019 04/20/2020 1 1 Encounter Details Date Type Department Care Team (Latest Contact Info) Description 04/21/2019 Transcribe Orders Virtual Department [address] [place] [address] Tristin Shah MD [address] [place] [address], [address] [place] [address] [email or web address] Chest pain, unspecified type (Primary Dx) Social [...] as of this encounter Results * CT ANGIO CHEST WITH CONTRAST (05/07/2019 2:22 PM EST) Anatomical Region Laterality Modality Chest, Thoracic Vasculature Comp uted Tomography 05/07/2019 2:29 PM EST Impressions 05/07/2019 4:19 PM EST 1. No acute pulmonary emboli within the main, lobar or segmental pulmonary arteries. Suboptimal evaluation of the more distal branches. 2. Diffuse bronchial wall thickening more pronounced in the lower lobes. Areas of peripheral mucous plugging and low lung volumes/atelectasis. Minimal debris/secretions in the central bronchi. Findings represent bronchitis/bronchiolitis. TOTAL CTDIvol: 34.20 mGy POS - [id number] Edited by: Mignon Stafford on 05/07/2019 3:10 PM Narrative 05/07/2019 4:19 PM EST EXAM: CT ANGIO CHEST WITH CONTRAST HISTORY: LEFT-sided pleuritic chest pain, rule out PE. TECHNIQUE: CT pulmonary angiogram performed. 50 mL Omnipaque [address] IV. Hel[address] CT images obtained with coronal, sagittal and 3-D postprocessing MIP images reconstructed. Radiation dose control: Exam performed with automated exposure control or iterative reconstruction to minimize radiation exposure. COMPARISON: 09/05/2018, 07/04/2018. FINDINGS: There are no filling defects within the main, lobar or segmental pulmonary arteries. No evidence for acute pulmonary emboli. Heterogeneous attenuation within the subsegmental and peripheral branches appears to represent artifact. Normal diameter and enhancement of the thoracic aorta. There is minimal debris/secretions in the mainstem bronchi. Small subpleural blebs are seen in the lung apices. There is mild peribronchial wall thickening lower lobes greater than upper lobes. In both lower lobes subsegmental bronchi are filled with debris and are narrowed. Lung volumes are lower than on the prior study with diffuse groundglass attenuation more pronounced at the lung bases. Normal size of the heart. No pericardial or pleural effusion. There is no suspicious adenopathy in the chest. There are cholecystectomy clips in the gallbladder fossa. Stable low-density RIGHT adrenal mass measuring up to 2.8 cm with the appearance of an adenoma, which was confirmed by prior MRI. No acute fracture. No suspicious lytic or blastic bone lesions. Procedure Note June Lan MD - 05/07/2019 EXAM: CT ANGIO CHEST WITH CONTRAST HISTORY: LEFT-sided pleuritic chest pain, rule out PE. TECHNIQUE: CT pulmonary angiogram performed. 50 mL Omnipaque [address] images obtained with coronal, sagittal and 3-Dpostprocessing MIP images reconstructed. Radiation dose control: Exam performed with automated exposure control oriterative reconstruction to minimize radiation exposure. COMPARISON: 09/05/2018, 07/04/2018. FINDINGS: There are no filling defects within the main, lobar or segmental pulmonaryarteries. No evidence for acute pulmonary emboli. Heterogeneousattenuation within the subsegmental and peripheral branches appears torepresent artifact. Normal diameter and enhancement of the thoracic aorta. There is minimal debris/secretions in the mainstem bronchi. Smallsubpleural blebs are seen in the lung apices. There is mild peribronchialwall thickening lower lobes greater than upper lobes. In both lower lobessubsegmental bronchi are filled with debris and are narrowed. Lung volumesare lower than on the prior study with diffuse groundglass attenuationmore pronounced at the lung bases. Normal size of the heart. No pericardial or pleural effusion. There is no suspicious adenopathy in the chest. There are cholecystectomy clips in the gallbladder fossa. Stablelow-density RIGHT adrenal mass measuring up to 2.8 cm with the appearanceof an adenoma, which was confirmed by prior MRI. No acute fracture. No suspicious lytic or blastic bone lesions. IMPRESSION: 1. No acute pulmonary emboli within the main, lobar or segmentalpulmonary arteries. Suboptimal evaluation of the more distal branches. 2. Diffuse bronchial wall thickening more pronounced in the lower lobes.Areas of peripheral mucous plugging and low lung volumes/atelectasis.Minimal debris/secretions in the central bronchi. Findings representbronchitis/bronchiolitis. TOTAL CTDIvol: 34.20 mGy POS - [id number] Edited by: Mignon Stafford on 05/07/2019 3:10 PM Tristin Shah MD IMG CT CHEST Final Result documented in this encounter Visit Diagnoses Diagnosis Chest pain, unspecified type- Primary Chest pain, unspecified type documented in this encounter Additional Health Concerns Infection Onset Date Last Indicated Resolved Time CoV-Risk 05/24/2020 05/25/2020 06/03/2020 1:24 AM EST CoV-Risk 07/06/2020 07/06/2020 07/16/2020 1:23 AM EST documented as of this encounter Care Teams Margin Trimmer Relationship Specialty Start Date End Date Anabelle Santiago MD [email or web address] PCP - General Family Medicine 04/03/17 10/27/23 Anabelle Santiago MD [address] [place] [address] [email or web address] PCP - General Family Medicine 10/28/23 Anabelle Santiago MD Historical LMR Provider 03/09/17 Toño Lopez MD [address] [address] Historical LMR Provider 03/09/17 05/27/21 Mita Faustin MD [address] [place] [address] Historical LMR Provider 03/09/17 05/27/21 Tommy Enriquez MD, MS [address] [place] [address] [email or web address] Historical LMR Provider 03/09/17 05/27/21 Carmelo Middleton MD [address] [place] [address] [email or web address] Historical LMR Provider 03/09/17 05/27/21 Austin Pyle MD [address] [address] Historical LMR Provider 03/09/17 05/27/21 Jeronimo Wood, QUANTITATIVE SOFTWARE ENGINEER [address] [address] anne Historical LMR Provider 03/09/17 05/27/21 Leonel Rivera MD [address] [place] [phone] [email or web address] Sports Medicine 09/29/24 documented as of this encounter Additional Source Comments The information contained in this document represents components of the legal health record. It is not the complete legal health record.[facility]
--- OUTSIDE RECORDS SUMMARY | 2025-02-17 13:17 | XMS_ITS | Encounter Summary ---
Author Organization [facility] Address [address] [place] [address] Phone Care Team Providers Care Client Support Professional Name Role Phone Anabelle Santiago MD Unavailable [phone] Toño Lopez MD Unavailable Mita Faustin MD Unavailable [phone] Tommy Enriquez MD, MS Unavailable +[phone] Carmelo Middleton MD Unavailable + [phone] Austin Pyle MD Unavailable [phone] Jeronimo Wood CNP Unavailable +[phone] Anabelle Santiago MD Primary Care Provider [phone] Anabelle Santiago MD Unavailable [phone] Anabelle Santiago MD Primary Care Provider [phone] Leonel Rivera MD Unavailable [phone] Reason for Referral * MRI/CAT Scan - Closed Specialty Diagnoses / Procedures Referred By Contac t Referred To Contact Radiology Diagnoses Paresthesia Procedures MRI Brain Anabelle Santiago MD Phone: tel: fax: mailto: Referral ID Status Reason Start Date Expiration Date Visits Re quested Visits Authorized [id number] Closed 04/02/2017 06/01/2017 1 1 Encounter Details Date Type Department Care Team (Late st Contact Info) Description 04/02/2017 Ancillary Orders Virtual Department [address] [place] [address] Anabelle Santiago MD [address] [place] [address] Paresthesia Social History Tobacco Use Types Packs/Day Years Used Date Smoking Tobacco: Light Smoker Cigarettes Smokeless Tobacco: Never Alcohol Use Standard Drinks/Week Comments Yes 0 (1 standard drink = 0.6 oz pur e alcohol) minimal Comments Unknown Sex and Gender Information Value Date Recorded Sex Assigned at Female 08/18/2017 9:48 PM EDT Legal Sex Female 9:34 PM EDT Gender Identity Female 08/18/2017 9:48 PM EDT Sexual Orientation Straight 05/16/2018 1: 02 PM EST documented as of this encounter Plan of Treatment Not on file documented as of this encounter Results * MRI BRAIN WITHOUT CONTRAST (04/15/2017 2:19 PM EST) Anatomical Region Laterality Modality Head Magnetic Resonan ce 04/15/2017 2:27 PM EST Impressions 04/15/2017 2:34 PM EST Essentially normal MRI appearance of the brain. No evidence of demyelinating disease nor other explanation of paresthesias. POS - [id number] Narrative 04/15/2017 2:34 PM EST TECHNIQUE: Exam performed on a 1.5 Leticia high-field MRI scanner. Axial T1, T2, T2*, T2 FLAIR and diffusion-weighted imaging with ADC map, sagittal T1 and FLAIR sequences were obtained. Several motion suppression sequences were utilized as well and there is still moderate motion on several sequences. Compared to head CT 01/10/2017 and prior MRI 09/28/2010. FINDINGS: No significant white matter lesions are identified in either hemisphere or the posterior fossa; no evidence of demyelinating disease No signal changes suspicious for ischemia, infarct, hemorrhage, mass or an inflammatory process. Normal bryson-white distinction. Ventricular system and basilar cisterns normal size and configuration. No cerebellar tonsillar ectopia nor signs of elevated intracranial pressure. No obvious inflammatory changes or masses involving the cavernous sinuses. Limited visualization of the proximal cranial nerves grossly normal. Normal flow-voids in the major vessels of the [place]. No pituitary, pineal region or intraorbital pathology No inflammatory changes in the paranasal sinuses or mastoid air cells. Procedure Note Shawn Garcia MD - 04/15/2017 TECHNIQUE: Exam performed on a 1.5 Leticia high-field MRI scanner. AxialT1, T2, T2*, T2 FLAIR and diffusion-weighted imaging with ADC map,sagittal T1 and FLAIR sequences were obtained. Several motion suppressionsequences were utilized as well and there is still moderate motion onseveral sequences. Compared to head CT 01/10/2017 and prior MRI 09/28/2010. FINDINGS: No significant white matter lesions are identified in either hemisphere orthe posterior fossa; no evidence of demyelinating disease No signal changes suspicious for ischemia, infarct, hemorrhage, mass or aninflammatory process. Normal bryson-white distinction. Ventricular system and basilar cisterns normal size and configuration. Nocerebellar tonsillar ectopia nor signs of elevated intracranialpressure. No obvious inflammatory changes or masses involving the cavernous sinuses.Limited visualization of the proximal cranial nerves grossly normal. Normal flow-voids in the major vessels of the [place]. No pituitary, pineal region or intraorbital pathology No inflammatory changes in the paranasal sinuses or mastoid air cells. IMPRESSION: Essentially normal MRI appearance of the brain. No evidence ofdemyelinating disease nor other explanation of paresthesias. POS - [id number] us Anabelle Santiago MD [facility] MR HEAD/NECK Final Resu lt documented in this encounter Visit Diagnoses Diagnosis Paresthesia Disturbance of skin sensation Paresthesia Disturbance of skin sensation documented in this encounter Additional Health Concerns Infection Onset Date Last Indicated Resolved Time CoV-Risk 05/24/2020 05/25/2020 06/03/2020 1:24 AM EST CoV-Risk 07/06/2020 07/06/2020 07/16/2020 1:23 AM EST documented as of this encounter Care Teams Client Support Professional Relationship Specialty Start Date End Date Anabelle Santiago MD [email or web address] PCP - General Family Medicine 04/03/17 10/27/23 Anabelle Santiago MD [address] [place] [address] [email or web address] PCP - General Family Medicine 10/28/23 Anabelle Santiago MD [email or web address] Historical LMR Provider 03/09/17 Toño Lopez MD [address] [place] [address] [email or web address] Historical LMR Provider 03/09/17 05/27/21 Mita Faustin MD [address] [place] [address] [email or web address] Historical LMR Provider 03/09/17 05/27/21 Tommy Enriquez MD, MS [address] [place] [address] [email or web address] Historical LMR Provider 03/09/17 05/27/21 Carmelo Middleton MD [address] [place] [address] [email or web address] Historical LMR Provider 03/09/17 05/27/21 Austin Pyle MD [address] [place] [address] [email or web address] Historical LMR Provider 03/09/17 05/27/21 Jeronimo Wood CNP [address] [facility], 2nd [place] [address] [email or web address] Historical LMR Provider 03/09/17 05/27/21 Anabelle Santiago MD [address] [place] [address] [email or web address] Insurance Assigned Provider 08/17/17 06/21/18 Lenoel Rivera MD [address] [place] [address] [email or web address] Sports Medicine 09/29/24 documented as of this encounter Additional Source Comments The information contained in this document represents components of the legal health record. It is not the complete legal health record.[facility]
--- OUTSIDE RECORDS SUMMARY | 2025-02-17 13:17 | XMS_ITS | Encounter Summary ---
Author Organization [facility] Address [address] [place] [address] Phone Care Team Providers Care Assembler Leather Goods Name Role Phone Anabelle Santiago MD Unavailable [phone] Toño Lopez MD Unavailable Mita Faustin MD Unavailable [phone] Tommy Enriquez MD, MS Unavailable [phone] Carmelo Middleton MD Unavailable + [phone] Austin Pyle MD Unavailable [phone] Jeronimo Wood CNP Unavailable +[phone] Anabelle Santiago MD Primary Care Provider [phone] Anabelle Santiago MD Unavailable [phone] Anabelle Santiago MD Primary Care Provider [phone] Leonel Rivera MD Unavailable [phone] Encounter Details Date Type Department Care Team (Late st Contact Info) Description 08/26/2017 Ancillary Orders Virtual Department 30 [place] [address] Suha Santiago PA [address] [place] [address] [email or web address] Low back pain radiating to left lower extremity Social History Tobacco Use [...] as of this encounter Results * MRI LUMBAR SPINE (NEURO) WITHOUT CONTRAST (10/18/2017 1:07 PM EDT) Anatomical Region Laterality Modality L-spine Magnetic Resonan ce 10/18/2017 2:31 PM EDT Impressions 10/18/2017 3:04 PM EDT Unremarkable examination. No disc herniations. POS [id number] Edited by: Mei Vieyra on 10/18/2017 2:54 PM Narrative 10/18/2017 3:04 PM EDT EXAM: MRI LUMBAR SPINE (NEURO) WITHOUT CONTRAST COMPARISON: None TECHNIQUE: Magnetic resonance imaging of the lumbar spine was performed WITHOUT injected contrast using standard department protocols. FINDINGS: ALIGNMENT: Lumbar lordosis is maintained. No subluxations. VERTEBRAL BODIES: Vertebral body heights are maintained. Normal bone marrow signal pattern. INTERVERTEBRAL DISCS: Normal height and signal intensity. CONUS: Conus terminates normally at L1 level . Axial images were obtained from L2-L3 through L5-S1. Level by level analysis yields the following: L2-3: No disc herniation. No significant canal or neuroforaminal stenosis. L3-4: No disc herniation. No significant canal or neuroforaminal stenosis. L4-5: No disc herniation. No significant canal or neuroforaminal stenosis. L5-S1: No disc herniation. No significant canal or neuroforaminal stenosis. Included portions of the retroperitoneal organs are grossly unremarkable. Edema in the deep posterior soft tissues along the lumbar region. Procedure Note Juan Antonio Echeverria MD - 10/18/2017 EXAM: MRI LUMBAR SPINE (NEURO) WITHOUT CONTRAST COMPARISON: None TECHNIQUE: Magnetic resonance imaging of the lumbar spine was performed WITHOUTinjected contrast using standard department protocols. FINDINGS: ALIGNMENT: Lumbar lordosis is maintained. No subluxations. VERTEBRAL BODIES: Vertebral body heights are maintained. Normal bonemarrow signal pattern. INTERVERTEBRAL DISCS: Normal height and signal intensity. CONUS: Conus terminates normally at L1 level . Axial images were obtained from L2-L3 through L5-S1. Level by levelanalysis yields the following: L2-3: No disc herniation. No significant canal or neuroforaminalstenosis. L3-4: No disc herniation. No significant canal or neuroforaminalstenosis. L4-5: No disc herniation. No significant canal or neuroforaminalstenosis. L5-S1: No disc herniation. No significant canal or neuroforaminalstenosis. Included portions of the retroperitoneal organs are grossly unremarkable.Edema in the deep posterior soft tissues along the lumbar region. IMPRESSION: Unremarkable examination. No disc herniations. POS [id number] Edited by: Mei Vieyra on 10/18/2017 2:54 PM Suha DE LA [facility] MR XSPECIALTY Final Res ult documented in this encounter Visit Diagnoses Diagnosis Low back pain radiating to left lower extremity Low back pain radiating to left lower extremity documented in this encounter Additional Health Concerns Infection Onset Date Last Indicated Resolved Time CoV-Risk 05/24/2020 05/25/2020 06/03/2020 1:24 AM EST CoV-Risk 07/06/2020 07/06/2020 07/16/2020 1:23 AM EST documented as of this encounter Care Teams Assembler Leather Goods Relationship Specialty Start Date End Date Anabelle Santiago MD PCP - General Family Medicine 04/03/17 10/27/23 Anabelle Santiago MD [address] [place] [address] PCP - General Family Medicine 10/28/23 Anabelle Santiago MD Historical LMR Provider 03/09/17 Toño Lopez MD [address] [place] [address] Historical LMR Provider 03/09/17 05/27/21 Mita Faustin MD [address] [place] [address] Historical LMR Provider 03/09/17 05/27/21 Tommy Enriquez MD, MS [address] [place] [address] [email or web address] Historical LMR Provider 03/09/17 05/27/21 Carmelo Middleton MD [address] [place] [address] [email or web address] Historical LMR Provider 03/09/17 05/27/21 Austin Pyle MD [address] [place] [address] Historical LMR Provider 03/09/17 05/27/21 Jeronimo Wood CNP [address] [place] [address] anne Historical LMR Provider 03/09/17 05/27/21 Anabelle Santiago MD [address] [place] [address] [email or web address] Insurance Assigned Provider 08/17/17 06/21/18 Leonel Rivera MD [address] [place] [address] [email or web address] Sports Medicine 09/29/24 documented as of this encounter Additional Source Comments The information contained in this document represents components of the legal health record. It is not the complete legal health record.[facility]
--- OUTSIDE RECORDS SUMMARY | 2025-02-17 13:17 | XMS_ITS | Encounter Summary ---
Author Organization [facility] Address [address] [place] [address] Phone Care Team Providers Care Digital Archivist Name Role Phone Anabelle Santiago MD Unavailable [phone] Toño Lopez MD Unavailable Mita Faustin MD Unavailable [phone] Tommy Enriquez MD, MS Unavailable +[phone] Carmelo Middleton MD Unavailable + [phone] Austin Pyle MD Unavailable [phone] Jeronimo Wood CNP Unavailable [phone] Anabelle Santiago MD Primary Care Provider [phone] Anabelle Santiago MD Unavailable [phone] Anabelle Santiago MD Primary Care Provider [phone] Leonel Rivera MD Unavailable [phone] Encounter Details Date Type Department Care Team (Late st Contact Info) Description 10/18/2017 Ancillary Orders [facility], Ct Scan - [facility] [address] [place] [address] Isiah uMro MD [address] [place], [place] [id number] [email or web address] Social History Tobacco Use Types Packs/Day Years [...] documented as of this encounter Care Teams Digital Archivist Relationship Specialty Start Date End Date Anabelle Santiago MD PCP - General Family Medicine 04/03/17 10/27/23 Anabelle Santiago MD [address] [place] [address] PCP - General Family Medicine 10/28/23 Anabelle Santiago MD Historical LMR Provider 03/09/17 Toño Lopez MD [address] [facility], [address] [place] [address] [email or web address] Historical LMR Provider 03/09/17 05/27/21 Mita Faustin MD [address] [facility], 2nd [place] [address] Historical LMR Provider 03/09/17 05/27/21 Tommy Enriquez MD, MS [address] [place] [address] [email or web address] Historical LMR Provider 03/09/17 05/27/21 Carmelo Middleton MD [address] [place] [address] [email or web address] Historical LMR Provider 03/09/17 05/27/21 Austin Pyle MD [address] [address] [email or web address] Historical LMR Provider 03/09/17 05/27/21 Jeronimo Wood [employer]NER [address] [address] [email or web address] Historical LMR Provider 03/09/17 05/27/21 Anabelle Santiago MD [address] [place] [address] [email or web address] Insurance Assigned Provider 08/17/17 06/21/18 Leonel Rivera MD [address] [place] [address] [email or web address] Sports Medicine 09/29/24 documented as of this encounter Additional Source Comments The information contained in this document represents components of the legal health record. It is not the complete legal health record.[facility]
--- OUTSIDE RECORDS SUMMARY | 2025-02-17 13:17 | XMS_ITS | Encounter Summary ---
Author Organization [facility] Address [address] [place] [address] Phone Care Team Providers Care Reading Intervention Teacher Name Role Phone Anbaelle Santiago MD Unavailable [phone] Toño Lopez MD Unavailable Mita Faustin MD Unavailable [phone] Tommy Enriquez MD, MS Unavailable +[phone] Carmelo Middleton MD Unavailable + [phone] Austin Pyle MD Unavailable +[phone] Jeronimo Wood CNP Unavailable +[phone] Anabelle Santiago MD Primary Care Provider [phone] Anabelle Santiago MD Primary Care Provider [phone] Leonel Rivera MD Unavailable [phone] Encounter Details Date Type Department Care Team (Late st Contact Info) Description 10/28/2020 Procedure Pass [facility], [address] [address] Social History Tobacco Use Types Packs/Day Years [...] on filedocumented in this encounter Care Teams Reading Intervention Teacher Relationship Specialty Start Date End Date Anabelle Santiago MD PCP - General Family Medicine 04/03/17 10/27/23 Anabelle Santiago MD [address] [place] [address] PCP - General Family Medicine 10/28/23 Anabelle Santiago MD Historical LMR Provider 03/09/17 Toño Lopez MD [address] [address] Historical LMR Provider 03/09/17 05/27/21 Mita Faustin MD [address] [place] [address] Historical LMR Provider 03/09/17 05/27/21 Tommy Enriquez MD, MS [address] [place] [address] Historical LMR Provider 03/09/17 05/27/21 Carmelo Middleton MD [address] [place] [address] [email or web address] Historical LMR Provider 03/09/17 05/27/21 Austin Pyle MD 22 [facility], [address] [place] [address] [email or web address] Historical LMR Provider 03/09/17 05/27/21 Jeronimo Wood CNP 15 [facility], 2nd [place] [address] [email or web address] Historical LMR Provider 03/09/17 05/27/21 Leonel Rivera MD [address] [place] [address] [email or web address] Sports Medicine 09/29/24 documented as of this encounter Additional Source Comments The information contained in this document represents components of the legal health record. It is not the complete legal health record.[facility]
--- OUTSIDE RECORDS SUMMARY | 2025-02-17 13:17 | XMS_ITS | Encounter Summary ---
Author Organization [facility] Address [address] [place] [address] Phone Care Team Providers Care Vessel Ordinary Seaman Name Role Phone Anabelle Santiago MD Unavailable [phone] Toño Lopez MD Unavailable Mita Faustin MD Unavailable [phone] Tommy Enriquez MD, MS Unavailable +[phone] Carmelo Middleton MD Unavailable + [phone] Austin Pyle MD Unavailable [phone] Jeronimo Wood CNP Unavailable [phone] Anabelle Santiago MD Primary Care Provider [phone] Anabelle Santiago MD Unavailable [phone] Anabelle Santiago MD Primary Care Provider [phone] Leonel Rivera MD Unavailable [phone] Encounter Details Date Type Department Care Team (Late st Contact Info) Description 08/26/2017 Procedure Pass [address] [place] [address] Social History Tobacco Use Types Packs/Day Years [...] documented as of this encounter Care Teams Vessel Ordinary Seaman Relationship Specialty Start Date End Date Anabelle Santiago MD PCP - General Family Medicine 04/03/17 10/27/23 Anabelle Santiago MD [address] [place] [address] PCP - General Family Medicine 10/28/23 Anabelle Santiago MD Historical LMR Provider 03/09/17 Toño Lopez MD [address] [place] [address] [email or web address] Historical LMR Provider 03/09/17 05/27/21 Mita Faustin MD [address] [place] [address] [email or web address] Historical LMR Provider 03/09/17 05/27/21 Tommy Enriquez MD, MS [address] [place] [address] [email or web address] Historical LMR Provider 03/09/17 05/27/21 Carmelo Middleton MD [address] [place] [address] [email or web address] Historical LMR Provider 03/09/17 05/27/21 Austin Pyle MD 22 [facility], [address] [place] [address] [email or web address] Historical LMR Provider 03/09/17 05/27/21 Jeronimo Wood CNP 15 [facility], 2nd [place] [address] [email or web address] Historical LMR Provider 03/09/17 05/27/21 Anabelle Santiago MD [address] [place] [address] [email or web address] Insurance Assigned Provider 08/17/17 06/21/18 Leonel Rivera MD [address] [place] [address] [email or web address] Sports Medicine 09/29/24 documented as of this encounter Additional Source Comments The information contained in this document represents components of the legal health record. It is not the complete legal health record.[facility]
--- OUTSIDE RECORDS SUMMARY | 2025-02-17 13:17 | XMS_ITS | Encounter Summary ---
Author Organization [facility] Address [address] [place] [address] Phone Care Team Providers Care Operator Helper Name Role Phone Anabelle Santiago MD Unavailable [phone] Anabelle Santiago MD Primary Care Provider [phone] Leonel Rivera MD Unavailable [phone] Reason for Visit * Auth/Cert (Routine) Specialty Diagnoses / Procedures Referred By Contac t Referred To Contact Diagnoses Dysphagia, pharyngoesophageal phase Hx of colonic polyps Dysphagia, pharyngoesophageal phase [R13.14] Hx of colonic polyps [Z86.0100] Procedures KS ESOPHAGOGASTRODUODENOSCOPY TRANSORAL DIAGNOSTIC KS EDG TRANSORAL BIOPSY SINGLE/MULTIPLE KS EGD ABLATE TUMOR POLYP/LESION W/DILATION& WIRE KS COLONOSCOPY FLX DX W/COLLJ SPEC WHEN PFRMD KS COLONOSCOPY W/BIOPSY SINGLE/MULTIPLE KS COLSC FLX W/RMVL OF TUMOR POLYP LESION SNARE TQ ESOPHAGOGASTRODUODENOSCOPY COLONOSCOPY Referral ID Status Reason Start Date Expiration Date Visits Re quested Visits Authorized [id number] 1 1 Encounter Details Date Type Department Care Team (Late st Contact Info) Description 12/17/2024 Hospital Encounter [facility] Admitting Dept Virtual Department [address] [place] [address] Omega Leon MD [address] [place] [address] [email or web address] Social History Tobacco Use Types Packs/Day Years [...] on filedocumented in this encounter Care Teams Operator Helper Relationship Specialty Start Date End Date Anabelle Santiago MD [address] [place] [address] PCP - General Family Medicine 10/28/23 Anabelle Santiago MD Historical LMR Provider 03/09/17 Leonel Rivera MD [address] [place] [address] [email or web address] Sports Medicine 09/29/24 documented as of this encounter Additional Source Comments The information contained in this document represents components of the legal health record. It is not the complete legal health record.[facility]
--- OUTSIDE RECORDS SUMMARY | 2025-02-17 13:17 | XMS_ITS | Encounter Summary ---
Author Organization [facility] Address [address] [place] [address] Phone Care Team Providers Care Machine Tool Electrician Name Role Phone Anabelle Santiago MD Unavailable [phone] Toño Lopez MD Unavailable Mita Faustin MD Unavailable [phone] Tommy Enriquez MD, MS Unavailable [phone] Carmelo Middleton MD Unavailable + [phone] Austin Pyle MD Unavailable [phone] Jeronimo Wood SR RISK MANAGEMENT CONSULTANT Unavailable [phone] Anabelle Santiago MD Primary Care Provider [phone] Anabelle Santiago MD Primary Care Provider [phone] Leonel Rivera MD Unavailable [phone] Encounter Details Date Type Department Care Team (Latest Contact Info) Description 09/16/2018 Transcribe Orders [facility] Laboratory [address] [facility] [address] [place], [place] [id number] Luh Washington SR RISK MANAGEMENT CONSULTANT [address] [place], [place] [phone] Abdominal pain, epigastric (Primary Dx); H. pylori infection Social History Tobacco Use Types Packs/Day Years [...] documented as of this encounter Results * (ABNORMAL) C-Reactive Protein (09/16/2018 3:52 PM EDT) C REACTIVE PROTEIN 9.2(H) 0.0 - 4.0 mg/L [facility] Blood 09/16/2018 3:52 PM EDT 09/16/2018 3:57 PM EDT us Luh Washington [facility] BLOOD ORDERABLES Final Result Performing Organization Address City/State/[facility] Co de Phone Number [address] [address] * Comprehensive metabolic panel (09/16/2018 3:52 PM EDT) SODIUM 142 133 - 146 mmol/L [facility] POTASSIUM 3.8 3.3 - 5.1 mmol/L [facility] CHLORIDE 103 96 - 108 mmol/L [facility] CO2 26 21 - 35 mmol/L [facility] BUN 12 6 - 19 mg/dL [facility] CREATININE 0.90 0.5 - 1.5 mg/dL [facility] GLUCOSE 86 70 - 99 mg/dL [facility] ALBUMIN 4.2 3.9 - 4.8 g/dL [facility] TOTAL PROTEIN 7.1 6.5 - 8.0 g/dL [facility] CALCIUM 9.7 8.4 - 10.3 mg/dL [facility] ALKALINE PHOSPHATASE 92 39 - 117 U/L [facility] TOTAL BILIRUBIN 0.2 0.0 - 1.2 mg/dL [facility] AST 25 0 - 37 U/L [facility] ALT 31 0 - 40 U/L [facility] GLOBULIN 2.9 1 - 4.8 g/dL [facility] EGFR 76 >59 mL/min/1.7 3m2 [facility] Comment:If patient is black, multiply result by 1.159. Estimated glomerular filtration rate calculated using the CKD-EPI equation. ANION GAP 17 10 - 20 mmol/L [facility] Blood 09/16/2018 3:52 PM EDT 09/16/2018 3:57 PM EDT Luh Washington [facility] BLOOD ORDERABLES Final Result Performing Organization Address City/[facility] Co de Phone Number [address] [address] * (ABNORMAL) CBC (09/16/2018 3:52 PM EDT) WBC 8.24 3.40 - 11.20 K/uL [facility] RBC 4.35 3.80 - 4.80 M/uL [facility] HGB 12.4 12.0 - 15.0 g/dL [facility] HCT 38.9 36.0 - 46.0 % [facility] PLT 230 130 - 400 K/uL [facility] MCV 89.4 79.0 - 98.0 fL [facility] MCH 28.5 27.0 - 34.8 pg [facility] MCHC 31.9 31.5 - 36.0 g/dL [facility] RDW 14.8(H) 10.8 - 14.6 % [facility] MPV 11.7 9.4 - 12.4 fl [facility] NRBC 0.00 0.00 /100 WBCs [facility] ABSOLUTE NRBC 0.00 0.00 K/uL [facility] Blood 09/16/2018 3:52 PM EDT 09/16/2018 3:57 PM EDT Luh Washington [facility] BLOOD ORDERABLES Final Result Performing Organization Address [facility]/ZIP Co de Phone Number [address] [address] * Immunoglobulin A (09/16/2018 3:52 PM EDT) IgA 174 70 - 400 mg/dL [facility] Blood 09/16/2018 3:52 PM EDT 09/16/2018 3:57 PM EDT Luh Washington [facility] BLOOD ORDERABLES Final Result Performing Organization Address City/[facility]/ZIP Co de Phone Number [facility] [address] [place] [address] * Tissue transglutaminase IgA (09/16/2018 3:52 PM EDT) TTG IGA ANTIBODY <1.2 <4.0 (Negative) U/mL [facility] Blood 09/16/2018 3:52 PM EDT 09/16/2018 3:57 PM EDT Luh Washington [facility] BLOOD ORDERABLES Final Result Performing Organization Address City/[facility]/ZIP Co de Phone Number [facility] [address] [place] [address] documented in this encounter Visit Diagnoses Diagnosis Abdominal pain, epigastric- Primary H. pylori infection Helicobacter pylori (H. pylori) documented in this encounter Additional Health Concerns Infection Onset Date Last Indicated Resolved Time CoV-Risk 05/24/2020 05/25/2020 06/03/2020 1:24 AM EST CoV-Risk 07/06/2020 07/06/2020 07/16/2020 1:23 AM EST documented as of this encounter Care Teams Machine Tool Electrician Relationship Specialty Start Date End Date Anabelle Santiago MD PCP - General Family Medicine 04/03/17 10/27/23 Anabelle Santiago MD [address] [place] [address] PCP - General Family Medicine 10/28/23 Anabelle Santiago MD Historical LMR Provider 03/09/17 Toño Lopez MD [address] [address] Historical LMR Provider 03/09/17 05/27/21 Mita Faustin MD [address] [place] [address] Historical LMR Provider 03/09/17 05/27/21 Tommy Enriquez MD, MS [address] [place] [address] Historical LMR Provider 03/09/17 05/27/21 Carmelo Middleotn MD [address] [place] [address] [email or web address] Historical LMR Provider 03/09/17 05/27/21 Austin Pyle MD [address] [place] [address] Historical LMR Provider 03/09/17 05/27/21 Jeronimo Wood SR RISK MANAGEMENT CONSULTANT [address] [place] [address] anne Historical LMR Provider 03/09/17 05/27/21 Leonel Rivera MD [address] [place] [address] [email or web address] Sports Medicine 09/29/24 documented as of this encounter Additional Source Comments The information contained in this document represents components of the legal health record. It is not the complete legal health record.[facility]
--- OUTSIDE RECORDS SUMMARY | 2025-02-17 13:18 | XMS_ITS | Encounter Summary ---
Author Organization [facility] Address [address] [place] [address] Phone Care Team Providers Care Senior Ui Developer Name Role Phone Anabelle Santiago MD Unavailable [phone] Anabelle Santiago MD Primary Care Provider [phone] Anabelle Santiago MD Primary Care Provider [phone] Leonel Rivera MD Unavailable [phone] Encounter Details Date Type Department Care Team (Late st Contact Info) Description 12/26/2022 Procedure Pass [place] Admitting Dept - Virtual Department 30 [place] [address] Social History Tobacco Use Types Packs/Day Years Used Date Smoking Tobacco: Former Cigarettes Smokeless Tobacco: Never Comments:quit May 2019 Alcohol Use Standard Drinks/Week Comments Yes 0 (1 standard drink = 0.6 oz pur e alcohol) minimal Education Answer Date Recorded Are you interested in more education? Not on hina e 09/14/2022 Are you concerned about learning? Not on file 09/14/2022 No 09/14/2022 No 09/14/2022 Digital Access Answer Date Recorded No 10/13/2022 No 10/13/2022 Reliable internet access at home? Not on file 10/13/2022 Device with a working camera? Not on file Comments No Sex and Gender Information Value [...] on filedocumented in this encounter Care Teams Senior Ui Developer Relationship Specialty Start Date End Date Anabelle Santiago MD PCP - General Family Medicine 04/03/17 10/27/23 Anabelle Santiago MD [address] [place] [address] PCP - General Family Medicine 10/28/23 Anabelle Santiago MD Historical LMR Provider 03/09/17 Leonel Rivera MD [address] [place] [address] [email or web address] Sports Medicine 09/29/24 documented as of this encounter Additional Source Comments The information contained in this document represents components of the legal health record. It is not the complete legal health record.[facility]
--- OUTSIDE RECORDS SUMMARY | 2025-02-17 13:18 | XMS_ITS | Encounter Summary ---
Author Organization [facility] Address [address] [place] [address] Phone Care Team Providers Care Price Analyst Name Role Phone Anabelle Santiago MD Unavailable [phone] Anabelle Santiago MD Primary Care Provider [phone] Leonel Rivera MD Unavailable [phone] Encounter Details Date Type Department Care Team (Late st Contact Info) Description 08/14/2024 Prep for Surgery [facility] Orthopedics & Sports Medicine [address] [place] [address] Libia Red MD [address] [place] [address] Orthopedics & Sports Medicine, [facility] [place] [address] [email or web address] Social History Tobacco Use Types Packs/Day Years [...] on filedocumented in this encounter Care Teams Price Analyst Relationship Specialty Start Date End Date Anabelle Santiago MD [address] [place] [address] PCP - General Family Medicine 10/28/23 Anabelle Santiago MD Historical LMR Provider 03/09/17 Leonel Rivera MD [address] [place] [address] [email or web address] Sports Medicine 09/29/24 documented as of this encounter Additional Source Comments The information contained in this document represents components of the legal health record. It is not the complete legal health record.[facility]
--- OUTSIDE RECORDS SUMMARY | 2025-02-17 13:18 | XMS_ITS | Encounter Summary ---
Author Organization [facility] Address [address] [place] [address] Phone Care Team Providers Care Nuclear Cardiology Technologist Name Role Phone Anabelle Santiago MD Unavailable [phone] Anabelle Santiago MD Primary Care Provider [phone] Anabelle Santiago MD Primary Care Provider [phone] Leonel Rivera MD Unavailable [phone] Encounter Details Date Type Department Care Team (Late st Contact Info) Description 12/14/2022 Prep for Surgery [facility] Orthopedics & Sports Medicine [address] [place] [address] Libia Red MD [address] [place] [address] Orthopedics & Sports Medicine, [facility]. [place], [place] [phone] [email or web address] Social History Tobacco Use Types Packs/Day Years [...] on filedocumented in this encounter Care Teams Nuclear Cardiology Technologist Relationship Specialty Start Date End Date Anabelle Santiago MD PCP - General Family Medicine 04/03/17 10/27/23 Anabelle Santiago MD [address] [place] [address] PCP - General Family Medicine 10/28/23 Anabelle Santiago MD Historical LMR Provider 03/09/17 Leonel Rivera MD [address] [place] [address] [email or web address] 09/29/24 documented as of this encounter Additional Source Comments The information contained in this document represents components of the legal health record. It is not the complete legal health record.[facility]
--- OUTSIDE RECORDS SUMMARY | 2025-02-17 13:18 | XMS_ITS | Encounter Summary ---
Author Organization [facility] Address [address] [place] [address] Phone Care Team Providers Care Map Maker Name Role Phone Anabelle Santiago MD Unavailable [phone] Anabelle Santiago MD Primary Care Provider [phone] Leonel Rivera MD Unavailable [phone] Reason for Visit * Reason Onset Date Comments Medication Refill 06/01/2024 Encounter Details Date Type Department Care Team (Late st Contact Info) Description 06/01/2024 Refill [facility] [address] [facility] 3rd Floor, [address] [place] [address] Norberto Mcknightara [place] 22 [place] [address] [email or web address] Medication Refill Social History Tobacco Use Types [...] PM EST documented as of this encounter Progress Notes * Talita Mcknight [place] - 06/01/2024 10:43 AM EST RX REVIEWED documented in this encounter Plan of Treatment Not on file documented as of this encounter Visit Diagnoses Diagnosis Narcolepsy documented in this encounter Care Teams Map Maker Relationship Specialty Start Date End Date Anabelle Santiago MD [address] [place] [address] PCP - General Family Medicine 10/28/23 Anabelle Santiago MD Historical LMR Provider 03/09/17 Leonel Rivera MD [address] [place] [address] [email or web address] Sports Medicine 09/29/24 documented as of this encounter Additional Source Comments The information contained in this document represents components of the legal health record. It is not the complete legal health record.[facility]
--- OUTSIDE RECORDS SUMMARY | 2025-02-17 13:18 | XMS_ITS | Encounter Summary ---
Author Organization [facility] Address [address] [place] [address] [address] [place] [address] Phone Care Team Providers Care Supervisor Composing Room Name Role Phone Anabelle Santiago MD Unavailable [phone] Toño Lopez MD Unavailable Mita Faustin MD Unavailable [phone] Tommy Enriquez MD, MS Unavailable [phone] Carmelo Middleton MD Unavailable + [phone] Austin Pyle MD Unavailable [phone] Jeronimo Wood CNP Unavailable [phone] Anabelle Santiago MD Primary Care Provider [phone] Anabelle Santiago MD Unavailable [phone] Anabelle Santiago MD Primary Care Provider [phone] Leonel Rivera MD Unavailable [phone] Encounter Details Date Type Department Care Team (Latest Contact Info) Description 05/21/2018 Ancillary Orders [facility], X-Ray - [facility] [address] [place] [address] Tristin Shah MD [address] [facility], [address] [place] [address] [email or web address] Uncomplicated asthma, unspecified asthma severity, unspecified whether persistent Social History Tobacco Use Types Packs/Day Years [...] as of this encounter Results * XR CHEST PA AND LATERAL 2 VIEWS (05/21/2018 4:00 PM EST) Anatomical Region Laterality Modality Chest Radiographic Yenifer ging 05/21/2018 4:12 PM EST Addenda Addendum by Ria Vega MD on 06/24/2018 4:47 PM EST PA and lateral views the chest obtained. Multiple prior, most recent March 17, 2017. Eventration anterior right hemidiaphragm again noted, slightly more focal today but not <<< DISSIMILAR TO >>> prior. Interstitial pattern stable. No consolidation. No effusions. No free air or pneumothorax. Heart not enlarged. No mediastinal contour change of concern. No compression deformity identified. IMPRESSION: Stable appearance of the chest. No acute cardiopulmonary abnormality appreciated. POS - [id number] Edited by: Mignon Stafford on 06/24/2018 4:07 PM Impressions 05/21/2018 4:13 PM EST Stable appearance of the chest. No acute cardiopulmonary abnormality appreciated. POS - [id number] Narrative 05/21/2018 4:13 PM EST PA and lateral views the chest obtained. Multiple prior, most recent March 17, 2017. Eventration anterior right hemidiaphragm again noted, slightly more focal today but not to similar prior. Interstitial pattern stable. No consolidation. No effusions. No free air or pneumothorax. Heart not enlarged. No mediastinal contour change of concern. No compression deformity identified. Procedure Note Ria Vega MD - 05/21/2018 PA and lateral views the chest obtained. Multiple prior, most recentOctober 2016. Eventration anterior right hemidiaphragm again noted,slightly more focal today but not to similar prior. Interstitial patternstable. No consolidation. No effusions. No free air or pneumothorax. Heartnot enlarged. No mediastinal contour change of concern. No compressiondeformity identified. IMPRESSION: Stable appearance of the chest. No acute cardiopulmonary abnormalityappreciated. POS - [id number] Tristin Shah MD IMG XR CHEST Edited Result - Final documented in this encounter Visit Diagnoses Diagnosis Uncomplicated asthma, unspecified asthma severity, unspecified whether persistent Uncomplicated asthma, unspecified asthma severity, unspecified whether persistent documented in this encounter Additional Health Concerns Infection Onset Date Last Indicated Resolved Time CoV-Risk 05/24/2020 05/25/2020 06/03/2020 1:24 AM EST CoV-Risk 07/06/2020 07/06/2020 07/16/2020 1:23 AM EST documented as of this encounter Care Teams Supervisor Composing Room Relationship Specialty Start Date End Date Anabelle Santiago MD PCP - General Family Medicine 04/03/17 10/27/23 Anabelle Santiago MD [address] [place] [address] PCP - General Family Medicine 10/28/23 Anabelle Santiago MD Historical LMR Provider 03/09/17 Toño Lopez MD [address] [place] [address], [address] [address] Historical LMR Provider 03/09/17 05/27/21 Mita Faustin MD [address] [address] [email or web address] Historical LMR Provider 03/09/17 05/27/21 Tommy Enriquez MD, MS [address] [place] [address] [email or web address] Historical LMR Provider 03/09/17 05/27/21 Carmelo Middleton MD [address] [place] [address] [email or web address] Historical LMR Provider 03/09/17 05/27/21 Austin Pyle MD [address] [address] [email or web address] Historical LMR Provider 03/09/17 05/27/21 Jeronimo Wood WAREHOUSE LABORER [address] [place] [address] [email or web address] Historical LMR Provider 03/09/17 05/27/21 Anabelle Santiago MD [address] [place] [address] [email or web address] Insurance Assigned Provider 08/17/17 06/21/18 Leonel Rivera MD [address] [place] [address] [email or web address] Sports Medicine 09/29/24 documented as of this encounter Additional Source Comments The information contained in this document represents components of the legal health record. It is not the complete legal health record.[facility]
--- OUTSIDE RECORDS SUMMARY | 2025-02-17 13:18 | XMS_ITS | Encounter Summary ---
Author Organization [facility] Address [address] [place] [address] Phone Care Team Providers Care Grants Manager Name Role Phone Anabelle Santiago MD Unavailable [phone] Toño Lopez MD Unavailable Mita Faustin MD Unavailable [phone] Tommy Enriquez MD, MS Unavailable [phone] Carmelo Middleton MD Unavailable + [phone] Austin Pyle MD Unavailable [phone] Jeronimo Wood CNP Unavailable [phone] Anabelle Santiago MD Primary Care Provider [phone] Anabelle Santiago MD Unavailable [phone] Anabelle Santiago MD Primary Care Provider [phone] Leonel Rivera MD Unavailable [phone] Encounter Details Date Type Department Care Team (Late st Contact Info) Description 10/18/2017 Ancillary Orders Virtual Department 30 [place] [address] Isiah Muro MD [address] [place], [place] [phone] [email or web address] Swelling of left lower extremity Social History Tobacco [...] as of this encounter Plan of Treatment Pending Results Name Type Priority Associated Diagnoses Date /Time US Lower Extremity Veins Duplex (Left) Vascular Routine Swelling of left lower extremity 10/18/2017 5:55 PM EDT Scheduled Orders Name Type Priority Associated Diagnoses Orde r Schedule US Lower Extremity Veins Duplex (Left) Vascular Routine Swelling of left lower extremity 1 Occurrences starting 10/18/2017 until 10/18/2018 documented as of this encounter Visit Diagnoses Diagnosis Swelling of left lower extremity documented in this encounter Additional Health Concerns Infection Onset Date Last Indicated Resolved Time CoV-Risk 05/24/2020 05/25/2020 06/03/2020 1:24 AM EST CoV-Risk 07/06/2020 07/06/2020 07/16/2020 1:23 AM EST documented as of this encounter Care Teams Grants Manager Relationship Specialty Start Date End Date Anabelle Santiago MD PCP - General Family Medicine 04/03/17 10/27/23 Anabelle Santiago MD [address] [place] [address] PCP - General Family Medicine 10/28/23 Anabelle Santiago MD Historical LMR Provider 03/09/17 Toño Lopez MD [address] [place] [address], [facility] [address] [place] [address] Historical LMR Provider 03/09/17 05/27/21 Mita Faustin MD [address] [address] Historical LMR Provider 03/09/17 05/27/21 Tommy Enriquez MD, MS [address] [place] [address] [email or web address] Historical LMR Provider 03/09/17 05/27/21 Carmelo Middleton MD [address] [place] [address] [email or web address] Historical LMR Provider 03/09/17 05/27/21 Austin Pyle MD [address] [address] [email or web address] Historical LMR Provider 03/09/17 05/27/21 Jeronimo Wood HVAC INSTALLATION TECHNICIAN [address] [place] [address] [email or web address] Historical LMR Provider 03/09/17 05/27/21 Anabelle Santiago MD [address] [place] [address] [email or web address] Insurance Assigned Provider 08/17/17 06/21/18 Leonel Rivera MD [address] [place] [address] (work) [email or web address] Sports Medicine 09/29/24 documented as of this encounter Additional Source Comments The information contained in this document represents components of the legal health record. It is not the complete legal health record.[facility]
== END 2025-02-17 12:02 | disposition home or self-care (01) ==
LOC: HO.HBS 11:41
PROVIDERS: PCP Family Medicine; Visit Provider Physician Assistant Surgical
DX: E66.01 Morbid (severe) obesity due to excess calories (principal); Z68.41 Body mass index [BMI] 40.0-44.9, adult; Z90.3 Acquired absence of stomach [part of]; Z98.84 Bariatric surgery status
CPT/HCPCS: 99213; G2211